=== PATIENT | female | born 1955 | race Caucasian/White ===

== ENCOUNTER 2016-09-04 06:13 | Inpatient (IN) | payer BC ==
--- NOTE | 2016-08-29 18:43 | HP ---
HISTORY AND PHYSICAL: DATE OF ADMISSION/SURGERY: 09/04/16 SURGEON: Carmelina Bishop MD. PROCEDURE: Right total hip arthroplasty. DATE OF OFFICE VISIT: 08/29/16 CHIEF COMPLAINT: Right hip pain. HISTORY OF PRESENT ILLNESS: Ms. Caceres is a 61-year-old female with complaints of right hip pain. She has advanced osteoarthritis and has failed conservative management and has elected to proceed with right total hip arthroplasty. Surgery is scheduled for 09/04/[address] Bishop. PAST MEDICAL HISTORY: 1. Diabetes. 2. Anemia. 3. Obesity. 4. Depression. 5. Malabsorption syndrome. 6. Psoriasis. 7. Sleep apnea. PAST SURGICAL HISTORY: Partial colectomy and appendectomy. CURRENT MEDICATIONS: 1. Zoloft. 2. Lorazepam. 3. Atorvastatin. 4. Januvia. 5. Montelukast. 6. Maggi. 7. Magnesium oxide. 8. Advair. 9. Fluticasone. 10. Iron. 11. Vitamin D. 12. Vitamin B12. 13. Aspirin. 14. Fentanyl patch. 15. Advil. 16. Hydrocodone/acetaminophen. ALLERGIES: CECLOR and SEPTRA. FAMILY HISTORY: Denies. SOCIAL HISTORY: She is a 61-year-old female. She works as a medical biller. She does not smoke or use drugs. She uses rare alcohol. REVIEW OF SYSTEMS: I reviewed a complete 14-point review of systems with the patient. She has a known history of anemia. Denies any anesthesia problems or history of a DVT. PHYSICAL EXAMINATION GENERAL: She is well developed, well nourished, in no acute distress. VITAL SIGNS: She stands 5 feet 6 inches tall, 240 pounds, her blood pressure is 134/80, heart rate 72. HEENT: Normocephalic, atraumatic. NECK: Supple. No palpable lymph nodes. Trachea is midline. PULMONARY: The lungs are clear to auscultation bilaterally. No wheezes, rhonchi, or rales. CARDIO: Regular rate and rhythm. Strong S1, S2. No murmurs, gallops, or rubs. No peripheral edema. ABDOMEN: Soft, nontender, nondistended. NEUROLOGICAL: She is alert and oriented x3. Cranial nerves II through XII are intact. MUSCULOSKELETAL: Right lower extremity: The skin is intact. She has limited range of motion with internal and external rotation in the right hip. She has 2 + distal pulses, intact sensation. Her lower extremity muscle group strengths are intact at 5/5 and she walks with an antalgic-type gait. ASSESSMENT AND PLAN: Ms. Caceres is a 61-year-old female with complaints of right hip pain secondary to advanced osteoarthritis. She has failed conservative management and has elected to proceed with a right total hip arthroplasty. The surgery is scheduled for 09/04/[address] Bishop. Percocet, Coumadin, and Colace were all sent to her pharmacy at today's visit for postoperative pain control and DVT prophylaxis. She was instructed not to take the Coumadin prior to the surgery. She was also asked to stop aspirin 1 week prior to the surgery. She will follow up with Dr. Bishop 2 weeks after the surgery. SHILO LARSON [id number]/[facility] #: [id number] AARON
[~2016-09-04 06:13] MED LIST: Buffered Lidocaine 1% SYR 3ML* 3 ML/SYR SYRINGE INTRADERM ONE; Buffered Lidocaine 1% SYR 3ML* 3 ML/SYR SYRINGE ONE; Famotidine IV* 10 MG/ML 2 ML (20 mg) IV ONE; Famotidine IV* 10 MG/ML 2 ML (20 mg) ONE; Gabapentin CAP(*) 300 MG ONE; Gabapentin CAP(*) 300 MG PO ONE; Levalbuterol 0.63MG/3ML NEB INH ONE; Levalbuterol 1.25MG/0.5ML NEB ONE; Metoclopramide TAB* 10 MG ONE; Metoclopramide TAB* 10 MG PO ONE; ceFAZolin 2 GM PREMIX (*) 2 GM/50 ML BAG IVPB ONE
[2016-09-04] MEDS ORDERED: Ondansetron INJ* 2 MG/ML VIAL ONE (07:10)
[2016-09-04] MEDS ORDERED: KETAMINE HCL* 50 MG/ML 10 ML VIAL ONE (07:10)
[2016-09-04] MEDS ORDERED: Bupivacaine 0.5% SDV PF* 30 ML VIAL ONE ×2 (07:10→09:12)
[2016-09-04] MEDS ORDERED: Propofol* 10 MG/ML 20 ML BTL IV PUSH ONE (07:10)
[2016-09-04] MEDS ORDERED: fentaNYL* 50 MCG/ML 2 ML VIAL (100 MCG VIAL) ONE ×5 (07:10→11:43)
[2016-09-04] MEDS ORDERED: Morphine PF AMP (0.5MG/ML)* 5 MG/10 ML AMP ONE (07:10)
[2016-09-04] MEDS ORDERED: Midazolam* 1 MG/ML 5 ML VIAL (5 MG) ONE (07:10)
[2016-09-04] MEDS ORDERED: Lidocaine 2% MPF* 2 ML VIAL ONE (07:10)
[2016-09-04] MEDS ORDERED: Dexamethasone IV* 4 MG/ML 1 ML (4 MG) ONE (07:10)
[2016-09-04] MEDS ORDERED: Ketorolac INJ* 30 MG/ML 1 ML VIAL ONE (07:10)
[2016-09-04] MEDS ORDERED: Cisatracurium* 2 MG/ML MDV 10 ML ONE (07:37)
[2016-09-04] MEDS ORDERED: fentaNYL* 50 MCG/ML 2 ML VIAL (100 MCG VIAL) IV PRN (09:03)
[2016-09-04] MEDS ORDERED: Ondansetron INJ* 2 MG/ML VIAL IV PRN ×2 (09:03→10:48)
[2016-09-04] MEDS ORDERED: HYDROmorphone INJ* 1 MG/ML CARPUJECT SYRINGE IV PRN (09:03)
[2016-09-04] MEDS ORDERED: DiMENhydriNATE IV* 50 MG/ML VIAL IV PUSH PRN (09:03)
[2016-09-04] MEDS ORDERED: Levalbuterol 0.63MG/3ML NEB INH PRN (09:03)
[2016-09-04] MEDS ORDERED: HYDROmorphone INJ* 1 MG/ML CARPUJECT SYRINGE ONE (09:46)
--- NOTE | 2016-09-04 10:29 | RAD ---
INDICATION: Right total hip placement surgery. TECHNIQUE: An AP view of the pelvis was obtained in the operating room. FINDINGS: There are postsurgical changes around the right hip. There is an acetabular prostheses and placement which appears to be in normal position. There is a femoral template in position. IMPRESSION: TOTAL RIGHT HIP REPLACEMENT SURGERY, INTRAOPERATIVE CONTROL FILMS.
[2016-09-04] MEDS ORDERED: Acetaminophen TAB* 325 MG PO PRN (10:48)
[2016-09-04] MEDS ORDERED: Bisacodyl SUPP* 10 MG SUPP PR PRN (10:48)
[2016-09-04] MEDS ORDERED: oxyCODONE/Acetamin 5/325 MG* TAB PO PRN (10:48)
[2016-09-04] MEDS ORDERED: diPHENhydraMINE IV* 50 MG/ML 1 ml VIAL (BENADRYL) IV PRN (10:48)
[2016-09-04] MEDS ORDERED: Meclizine TAB* 12.5 MG PO PRN (11:00)
[2016-09-04] MEDS ORDERED: PTO:Albuterol HFA INHALER* 8 gm MDI INH PRN (11:00)
--- NOTE | 2016-09-04 12:01 | RAD ---
HISTORY: Status post right total hip arthroplasty COMPARISONS: August 29, 2016 VIEWS: 3, Frontal view of the pelvis with frontal and crosstable lateral views the right hip FINDINGS: BONE DENSITY: Normal. BONES: The patient is status post right hip arthroplasty. There is no hardware failure or osteolysis. JOINTS: The patient is status post right hip arthroplasty. There is moderate osteoarthritis of the left hip ALIGNMENT: There is no dislocation. SOFT TISSUES: Unremarkable. OTHER FINDINGS: None. IMPRESSION: STATUS POST RIGHT HIP ARTHROPLASTY
[2016-09-04] MEDS ORDERED: Artificial Tear OPHTH.OINT* 3.5 GM RIGHT EYE PRN (12:57)
[2016-09-04] MEDS ORDERED: Morphine INJ* 4 MG/ML 1 ML CARPUJECT ONE (14:19)
[2016-09-04] MEDS: Morphine INJ* 4 MG/ML 1 ML CARPUJECT IV PRN ×3 (14:24→23:37)
[2016-09-04] MEDS: fentaNYL PATCH 25 MCG/HR TRANSDERM SCH (15:50)
[2016-09-04] MEDS: ceFAZolin 1 GM in Dextrose (*) 1 GM/50 ML BAG IVPB SCH ×2 (15:53→21:53)
[2016-09-04] MEDS: Tobramycin 0.3% OPHTH.SOL* 5 ML BOT (regular eye drops) RIGHT EYE SCH ×2 (16:43→21:57)
[2016-09-04] MEDS ORDERED: Warfarin TAB(*) 6 MG PO ONE (17:00)
--- NOTE | 2016-09-04 17:17 | PN ---
Progress Note - Progress Note SOAP: Subjective: Pt. is reporting eye pain, hip pain controlled. Objective: Vital Signs: Temp Pulse Resp BP Pulse Ox 98.4 F 68 16 141/67 95 09/04/16 15:54 09/04/16 15:54 09/04/16 16:46 09/04/16 15:54 09/04/16 16:00 Laboratory Results - last 24 hr 09/04/16 09/04/16 09/04/16 06:55 10:53 16:52 POC Glucose (mg/dL) 151 H 191 H 179 H RLE - distally nvi Assessment: 61 yo F s/p RTHA with possible corneal abrasion Plan: Pt. has likely corneal abrasion - eye drops and optho called. wbat RLE pt/ot in am
[2016-09-04] MEDS: oxyCODONE/Acetamin 5/325 MG* TAB PO PRN ×2 (17:25→21:55)
[2016-09-04] MEDS ORDERED: Dextrose 50% Syringe 50 ML* 25 GM/50 ML SYRINGE IV PUSH PRN (18:08)
[2016-09-04] MEDS: fentaNYL Patch Check Q Shift 1 NOTE SCH (18:47)
--- NOTE | 2016-09-04 21:51 | CONS ---
MEDICAL CONSULTATION: DATE OF CONSULT / DICTATION: 09/04/16 PRIMARY CARE PROVIDER: Dr. Baltazar. CONSULTING PROVIDER: SHILO Doyle REQUESTING PROVIDER: Dr. Carmelina Bishop. SUPERVISING PHYSICIAN: Dr. Hola Rey. CHIEF COMPLAINT: Status post left total hip arthroplasty. HISTORY OF PRESENT ILLNESS: This is a 61-year-old female with a history of noninsulin-dependent diabetes, asthma, chronic anemia, anxiety, malabsorption disorder after a partial colectomy, psoriasis, obstructive sleep apnea, Meniere' s disease, and a chronic leukocytosis, previously evaluated by Hematology, who underwent a right total hip arthroplasty by Dr. Carmelina Bishop earlier today. Hospitalist group has been consulted for medical co-management. The patient is reporting some right eye irritation postoperatively. Tobramycin drops and Artificial Tears have been ordered by Orthopedic Surgery and a consultation with Ophthalmology, suspect corneal abrasion. The patient's chronic medical conditions have been under good control. No recent acute illness or other acute concerns preoperatively. The patient reports that she is experiencing some mild hip pain, but otherwise denies any significant nausea, vomiting. PAST MEDICAL HISTORY: 1. Noninsulin-dependent diabetes with last hemoglobin A1c of 6.6%, measured in May of 2016. 2. Chronic anemia with preop hemoglobin of 11.4 g/dL measured 08/23/16. 3. Obstructive sleep apnea. 4. Anxiety. 5. Malabsorption syndrome secondary to partial colectomy. 6. Psoriasis. 7. Chronic leukocytosis thought to be secondary to her psoriasis, previously evaluated by Hematology. 8. Meniere's disease. 9. Asthma. 10. Chronic low back pain. PAST SURGICAL HISTORY: 1. Partial colectomy and appendectomy in 1989. 2. Right total hip arthroplasty today. HOME MEDICATIONS: 1. Metformin extended release 500 mg p.o. daily. 2. Albuterol inhaler 2 puffs inhaled q.4 hours p.r.n. shortness of breath. 3. Aspirin 81 mg p.o. daily. 4. Atorvastatin 10 mg p.o. daily. 5. Vitamin D 5000 units p.o. daily. 6. Clobetasol 0.05% cream apply topically daily as needed. 7. Ferrous sulfate 160 mg p.o. daily. 8. Maggi 1 tablet p.o. daily. 9. Fluticasone nasal spray 1 spray in each nostril daily. 10. Advair 500/50 one puff inhaled twice daily. 11. Vicodin 5/325 half a tablet p.o. q.3 hours as needed for pain. 12. Ibuprofen 800 mg p.o. 4 times a day as needed for pain. 13. Lorazepam 0.5 mg p.o. daily as needed for anxiety. 14. Magnesium oxide 1200 mg p.o. daily. 15. Meclizine 25 mg p.o. t.i.d. p.r.n. dizziness. 16. Singulair 10 mg p.o. daily. 17. Sertraline 150 mg p.o. daily. 18. Januvia 100 mg p.o. daily. 19. Fentanyl patch 25 mcg per hour apply transdermally and changed every 72 hours. SOCIAL HISTORY: The patient works as a medical laboratory technicians. She reports occasional alcohol use and denies a history of tobacco use. REVIEW OF SYSTEMS: The patient's only complaint is some mild right hip pain and right eye discomfort and otherwise negative. PHYSICAL EXAM: Vitals: Temperature 98.9 degrees Fahrenheit, heart rate 70 beats per minute, respiratory rate 16 per minute, blood pressure 137/65 mmHg. Oxygen saturation 98% on room air. General: This is a pleasant 61-year-old female who appears comfortable, lying in bed, and is in no acute distress. HEENT: Head is normocephalic, atraumatic. Right eye has a clear watery discharge with associated light sensitivity. Pupils are equal, round, and reactive to light and accommodation. Right cornea is mildly erythematous and no purulent drainage appreciated. Neck: Neck is supple and free of lymphadenopathy. No JVD appreciated. Respiratory: Normal work of breathing. Lungs are clear to auscultation without wheezes, crackles, or rhonchi. Cardiac : Heart has regular rate and rhythm without murmurs, rubs, or gallops. Abdomen : Abdomen is soft and nontender to palpation. Extremities: SCDs are in place. No obvious edema or erythema appreciated. Surgical dressing in place over the right hip. Neuro: The patient is awake and alert and able to answer all questions appropriately. DIAGNOSTIC STUDIES/LAB DATA: Laboratory evaluation reviewed. Preop labs from 08/23/16, which showed white blood cell count of 14,000 which again is chronic for this patient. Hemoglobin of 11.4 g/dL and a platelet count of 310,000. Comprehensive metabolic panel is unremarkable with a sodium of 134 mmol/L, potassium 4.1 mmol/L, BUN 16, creatinine 0.8 and estimated GFR of 73. Random glucose of 124 mg/dL, and transaminases and total bilirubin within normal limits. ASSESSMENT AND PLAN: This is a 61-year-old female with a history of noninsulin - dependent diabetes, asthma, chronic anemia, anxiety, malabsorption disorder secondary to partial colectomy, psoriasis, obstructive sleep apnea, Meniere's disease and chronic leukocytosis who is day 0 status post right total hip arthroplasty by Dr. Bishop. Hospitalist group has been asked to consult for medical co-management in this case. 1. Right total hip arthroplasty - the patient is day 0. Surgical management per orthopedic group. DVT prophylaxis, pain management, and discharge planning per Orthopedic Surgery. 2. Noninsulin-dependent diabetes - we will hold her metformin and Januvia, cover with sliding scale insulin at meal time during her hospital stay. 3. Asthma - no evidence of acute exacerbation. Continue home inhaled medication. 4. Chronic anemia - baseline hemoglobin of 11.4 g/dL. Hemoglobin and hematocrit will be checked tomorrow. 5. Chronic leukocytosis - this has been investigated by Hematology and thought to be benign. We will not monitor white blood cell count during her hospital stay and it will be anticipated high unless there is a clinical indication for it. 6. Anxiety - continue home medication. 7. Psoriasis. 8. Obstructive sleep apnea. 9. Meniere's disease. 10. Malabsorption disorder. 11. Code status - the patient is full code. 12. DVT prophylaxis - per Orthopedic Surgery. The patient has been ordered enoxaparin and Coumadin. 13. Healthcare proxy is unknown. DISPOSITION: Hospitalist group will continue to follow along on this patient. Discharge planning per orthopedic surgery group. SHILO DOYLE CC: Dr. Baltazar* [id number]/[facility] #: [id number] AARON
[2016-09-04] MEDS: Docusate CAP* 100 MG PO SCH (21:55)
--- NOTE | 2016-09-05 00:46 | OP ---
DATE OF OPERATION: 09/04/16 - ROOM #346 DATE OF : 59 SURGEON: Carmelina Bishop MD CHANGE RELEASE MANAGER: HSILO Colin ANESTHESIOLOGIST: Dr. Smith. ANESTHESIA: General. PRE-OP DIAGNOSIS: Severe end-stage degenerative osteoarthritis of the right hip joint. POST-OP DIAGNOSIS: Severe end-stage degenerative osteoarthritis of the right hip joint. OPERATIVE PROCEDURE: Right total hip arthroplasty. HARDWARE USED: Elmer uncemented total hip hardware. For the acetabular cup, a Trident Tritanium Cluster Hole Shell size 50 with a 32D, X3 liner. A 120 mm cancellous bone screw was used for extra fixation of the cup. For the femoral stem, an Accolade TMZF size 3 with a 132-degree neck. For the head, a ceramic Biolox delta 32, -4 femoral head. COMPLICATIONS: None. ESTIMATED BLOOD LOSS: 300 cc. SPECIMENS: Femoral head and acetabular bone reaming sent to pathology. BRIEF HISTORY/INDICATIONS: Ms. Caceres is a 61-year-old female with years of increasingly severe right hip pain. She fails conservative treatment with antiinflammatories, pain medication, ambulatory assistive devices, physical therapy, intraarticular injection, and attempted weight loss. Radiographs confirmed [id number] arthritis. Due to the patient's extreme pain and decreased quality of life, she wished to proceed with right total hip arthroplasty. Informed consent was obtained from the patient. She understood the risks of procedure included, but were not limited to bleeding, infection, damage to nearby structures, continued pain, need for further surgery, intraoperative fracture, nerve palsy, hardware failure or loosening, dislocation , leg length discrepancy, stroke, heart attack, blood clot, and . She wished to proceed. INTRAOPERATIVE FINDINGS: Intraoperatively, the patient was noted to have a dysplastic acetabulum with complete loss of cartilage. Femoral head and neck also had complete loss of cartilage and osteophyte formation. DESCRIPTION OF PROCEDURE: Ms. Caceres was identified in the preanesthesia unit. Her right lower extremity was marked as the correct operative site. Informed consent was signed and placed in the chart. The patient was taken to the operating room and placed under general anesthesia. A Cotter catheter was placed. She was placed in the left lateral decubitus position on the pegboard. All bony prominences were well padded. Right lower extremity was prepped and dapped in the usual sterile fashion. Preop time-out was made to correctly identify the patient's side and site. Appropriate perioperative antibiotics were given within 1 hour of incision. A 15-cm posterior hip incision was made with a 10 blade and carried down to the lateral fascial layer using electro-cautery. There was at least 10 cm of subcutaneous fat due to the patient's morbid obesity, which did add significant difficulty in exposure during the procedure. A Charnley retractor was placed once the lateral fascial layer was incised in line with the skin incision. Posterior aspect of the hip joint was visualized. The piriformis and conjoined tendons were elevated off the posterolateral femur using electrocautery. These were tagged with two #5 Ethibond's. Next, electro-cautery was used to make a standard posterolateral capsular flap and this was also tagged with two #5 Ethibond's. The hip was carefully dislocated. Lesser trochanter to the center of the femoral head measured 50 mm. Oscillating saw was used to make the appropriate femoral neck cut and the femoral head was sent to pathology. The femur was carefully retracted anteriorly. After appropriate placement of retractors, the acetabulum was visualized. There was complete loss of cartilage here and a shallow dysplastic acetabular cup. Electrocautery was used to remove any soft tissue from the cotyloid notch. A long handle knife was used to sharply remove any remaining labrum from the acetabular rim. The acetabulum was sequentially reamed up to a size 49. The 49 trial had good stability in anteversion and abduction angle. A 50 Trident Tritanium Cluster Hole Shell was chosen. This was impacted into the acetabulum without difficulty. There was a nice bleeding bone bed. The cup was very stable with appropriate anteversion and abduction angle. A 120 mm screw was placed in the superior posterior quadrant. A 32D Trident X3 polyethylene liner was chosen. This was impacted into the acetabulum without difficulty. Stability of the liner and the cup was checked and rechecked and noted to be stable. Next, attention was turned to preparation of the proximal femur. Canal finder was used to enter the proximal femur. The proximal femur was sequentially broached up to a size 3. Size 3 broach had satisfactory anteversion and excellent stability. A 132 neck trial was chosen with a 32, +0 femoral head. Lesser troch to the center of the femoral head measured 55 mm, therefore a 32, - 4 trial was chosen. Lesser troch to the center of the femoral head measured 52 mm. The hip was carefully reduced. The hip was taken through range of motion and was stable in all positions. Leg lengths were deemed to be approximate and soft tissue tension was satisfactory. The patient's muscles and the soft tissue were noted to have significant laxity. The hip was stable in all positions, however. The hip was carefully dislocated. All trials were removed. Final implant was an Accolade TMZF size 3 with a 132-degree neck. This was impacted into the femoral canal without difficulty. There was excellent stability. A 32, -4 ceramic head was chosen and impacted on to the femoral head. The hip was reduced and taken thorough range of motion. The hip was stable in all positions. The hip was copiously irrigated with sterile saline. The previously tagged capsule and tendons were reapproximated through the posterior lateral femur through 2 trochanteric drill holes. Lateral fascial layer was closed using interrupted #1 Vicryl. The rest of the incision was closed in a layered fashion using 0 and 2-0 Vicryl's. Skin was closed using running 3-0 Monocryl suture with Dermabond. Sterile Adaptic, 4x4, and a paper tape were used to cover the incision. A 0.5% Marcaine was used for local anesthesia. The patient's anesthesia was reversed without difficulty. She was taken to the PACU in stable condition. Intended weightbearing will be weightbearing as tolerated with posterior hip precautions. Intended DVT prophylaxis will be Coumadin with a Lovenox bridge. [id number]/[facility] #: [id number] AARNO
[2016-09-05] MEDS: Tobramycin 0.3% OPHTH.SOL* 5 ML BOT (regular eye drops) RIGHT EYE SCH ×6 (00:47→20:13)
[2016-09-05] MEDS: ceFAZolin 1 GM in Dextrose (*) 1 GM/50 ML BAG IVPB SCH (03:24)
[2016-09-05] MEDS: oxyCODONE/Acetamin 5/325 MG* TAB PO PRN ×5 (03:26→19:01)
[2016-09-05] MEDS: Morphine INJ* 4 MG/ML 1 ML CARPUJECT IV PRN ×3 (04:35→11:24)
[2016-09-05] MEDS: fentaNYL Patch Check Q Shift 1 NOTE SCH ×2 (06:47→19:02)
[2016-09-05 06:49] LABS: Hematocrit 26 % (35-47); Hemoglobin 8.1 g/dl (12.0-16.0)
[2016-09-05 07:03] LABS: BUN/Creatinine Ratio 21.9 (8-20); Calcium 8.2 mg/dL (8.6-10.3); EGFR African American 122.1 (>60); Potassium 3.6 mmol/L (3.5-5.0)
--- NOTE | 2016-09-05 07:16 | PN ---
Progress Note - Progress Note SOAP: Subjective: Pt. reports her eye feels much better. 6/10 R hip pain. Objective: RLE - dressing c/d/i, thigh soft, distally nvi with + df/pf, full sens lt, 2+ dp pulse Vital Signs: Temp Pulse Resp BP Pulse Ox 99.5 F 86 16 118/55 96 09/05/16 03:24 09/05/16 03:24 09/05/16 05:26 09/05/16 03:24 09/05/16 04:00 Laboratory Results - last 24 hr 09/04/16 09/04/16 09/04/16 06:55 10:53 16:52 Hgb Hct INR (Anticoag Therapy) Sodium Potassium Chloride Carbon Dioxide Anion Gap BUN Creatinine Est GFR ( Amer) Est GFR (Non-Af Amer) BUN/Creatinine Ratio Glucose POC Glucose (mg/dL) 151 H 191 H 179 H Calcium 09/05/16 09/05/16 09/05/16 06:30 06:30 06:30 Hgb 8.1 L Hct 26 L INR (Anticoag Therapy) 1.17 H Sodium 135 Potassium 3.6 Chloride 104 Carbon Dioxide 28 Anion Gap 3 BUN 14 Creatinine 0.64 Est GFR ( Amer) 122.1 Est GFR (Non-Af Amer) 95.0 BUN/Creatinine Ratio 21.9 H Glucose 138 H POC Glucose (mg/dL) Calcium 8.2 L Assessment: 61 yo F pod 1 s/p RTHA Plan: wbat rle - pt/ot post hip precautions postop likely corneal abrasion much improved today 8 mg coumadin tonight, lovenox bridge
[2016-09-05] MEDS ORDERED: Mometasone/Formoter 200/5 MDI INH SCH (08:00)
[2016-09-05] MEDS: FLUTICASONE SALMETEROL INH SCH ×2 (09:06→20:13)
[2016-09-05] MEDS: Insulin LISPRO* 1 UNITS UNIT SUBCUT SCH ×3 (09:10→19:00)
[2016-09-05] MEDS: Vitamin THERAPEUTIC TAB PO SCH (09:11)
[2016-09-05] MEDS: Atorvastatin* 10 MG TAB PO SCH (09:12)
[2016-09-05] MEDS: Montelukast Sodium TAB* 10 MG PO SCH (09:12)
[2016-09-05] MEDS: Docusate CAP* 100 MG PO SCH ×2 (09:12→20:13)
[2016-09-05] MEDS: Sertraline* 100 MG TAB PO SCH (09:12)
[2016-09-05] MEDS: Enoxaparin(*) 40 MG/0.4 ML SYR SUBCUT SCH (10:22)
[2016-09-05] MEDS ORDERED: Cyclobenzaprine TAB* 10 MG PO PRN (11:48)
[2016-09-05] MEDS ORDERED: LORazepam TAB(*) 0.5 MG PO ONE (11:48)
--- NOTE | 2016-09-05 12:08 | PN ---
Subjective Date of Service: 09/05/16 Interval History: Patient seen and examined at bedside. Pt denies fever, chest discomfort, N/V/D. Pt states that she feels chilled (Pt's room is cool) and slightly short of breath after getting from the chair to the bed. Pt is complaining of pain in her right hip. Family History: Unchanged from Admission Social History: Unchanged from Admission Past Medical History: Unchanged from Admission Objective Active Medications: Acetaminophen (Tylenol Tab*) 650 mg PO Q4H PRN Reason: PAIN OR TEMPERATURE Albuterol (Ventolin Hfa Inhaler*) 2 puff INH Q4H PRN Reason: SOB/WHEEZING Artificial Tears (Lacrilube Oint*) 1 applic RIGHT EYE Q4H PRN Reason: DISCOMFORT Atorvastatin Calcium (Lipitor*) 10 mg PO DAILY JOHN Bisacodyl (Dulcolax Supp*) 10 mg [place] DAILY PRN Reason: constipation Dextrose (D50w Syringe 50 Ml*) 12.5 gm IV PUSH .FOR FS < 60 - SS PRN Reason: FS < 60 Diphenhydramine HCl (Benadryl Iv*) 25 mg IV Q6H PRN Reason: itching Docusate Sodium (Colace Cap*) 100 mg PO BID JOHN Enoxaparin Sodium (Lovenox(*)) 40 mg SUBCUT Q24H JOHN Fentanyl (Duragesic Patch 25 Mcg/Hr*) 25 mcg TRANSDERM Q72H JOHN Lactated Ringer's (Lactated Ringers 1000 Ml Bag*) 1,000 mls @ 100 mls/hr IV PER RATE JOHN Insulin Human Lispro (Humalog*) 0 units SUBCUT AC JOHN Reason: Protocol Lactulose (Lactulose*) 30 ml PO Q6H PRN Reason: constipation Magnesium Hydroxide (Milk Of Magnesia Liq*) 30 ml PO Q6H PRN Reason: constipation Meclizine HCl (Antivert Tab*) 25 mg PO TID PRN Reason: VERTIGO Montelukast Sodium (Singulair Tab*) 10 mg PO DAILY JOHN Morphine Sulfate (Morphine Inj (Syringe)*) 4 mg IV Q2H PRN Reason: PAIN - UNRELIEVED Multivitamins (Theragran Tab*) 1 tab PO DAILY JOHN Ondansetron HCl (Zofran Inj*) 4 mg IV Q6H PRN Reason: nausea Oxycodone HCl (Roxycodone Tab*) 10 mg PO Q4H PRN Reason: PAIN - UNCONTROLLED Oxycodone/Acetaminophen (Percocet 5/325 Tab*) 1 tab PO Q3H PRN Reason: PAIN - MODERATE Oxycodone/Acetaminophen (Percocet 5/325 Tab*) 2 tab PO Q3H PRN Reason: PAIN - SEVERE Pharmacy Profile Note (Fentanyl Patch Check Q Shift) 1 note N/A 0700,1900 JOHN Fluticasone/Salmeterol (Advair Diskus 500-50*) 1 puff INH RT.BID JOHN Sertraline HCl (Zoloft*) 150 mg PO DAILY JOHN Tobramycin Sulfate (Tobramycin 0.3% Ophth.Claudia*) 1 drop RIGHT EYE Q4H JOHN Warfarin Sodium (Coumadin Tab(*)) 8 mg PO ONCE@1700 ONE Stop: 09/05/16 17:01 Vital Signs 09/04/16 09/04/16 09/04/16 11:44 11:45 12:00 Temperature Pulse Rate 85 81 Respiratory 16 16 16 Rate Blood Pressure 148/69 155/77 (mmHg) O2 Sat by Pulse 96 98 Oximetry 09/04/16 09/04/16 09/04/16 12:15 12:30 12:45 Temperature Pulse Rate 86 82 74 Respiratory 16 16 16 Rate Blood Pressure 138/73 142/83 153/77 (mmHg) O2 Sat by Pulse 98 98 96 Oximetry 09/04/16 09/04/16 09/04/16 13:00 13:15 13:33 Temperature 98.6 F Pulse Rate 85 74 73 Respiratory 16 16 18 Rate Blood Pressure 141/72 149/78 145/72 (mmHg) O2 Sat by Pulse 98 97 96 Oximetry 09/04/16 09/04/16 09/04/16 14:00 14:24 14:46 Temperature 98.8 F Pulse Rate 72 Respiratory 11 16 18 Rate Blood Pressure 147/73 (mmHg) O2 Sat by Pulse 96 96 Oximetry 09/04/16 09/04/16 09/04/16 15:24 15:43 15:50 Temperature 98.6 F Pulse Rate 73 Respiratory 18 18 16 Rate Blood Pressure 145/72 (mmHg) O2 Sat by Pulse 96 Oximetry 09/04/16 09/04/16 09/04/16 15:54 16:00 17:25 Temperature 98.4 F Pulse Rate 68 Respiratory 20 12 18 Rate Blood Pressure 141/67 (mmHg) O2 Sat by Pulse 98 95 Oximetry 09/04/16 09/04/16 09/04/16 17:34 18:00 18:49 Temperature 98.9 F Pulse Rate 70 Respiratory 16 16 Rate Blood Pressure 137/65 (mmHg) O2 Sat by Pulse 98 98 95 Oximetry 09/04/16 09/04/16 09/04/16 18:55 18:58 19:25 Temperature 99.4 F Pulse Rate 78 Respiratory 20 16 18 Rate Blood Pressure 139/67 (mmHg) O2 Sat by Pulse 98 Oximetry 09/04/16 09/04/16 09/04/16 19:27 19:55 20:00 Temperature Pulse Rate Respiratory 16 16 16 Rate Blood Pressure (mmHg) O2 Sat by Pulse 95 Oximetry 09/04/16 09/04/16 09/04/16 21:55 22:00 23:32 Temperature 100.7 F Pulse Rate 85 Respiratory 18 14 18 Rate Blood Pressure 110/45 (mmHg) O2 Sat by Pulse 95 98 Oximetry 09/04/16 09/04/16 09/04/16 23:35 23:37 23:55 Temperature Pulse Rate Respiratory 18 20 Rate Blood Pressure (mmHg) O2 Sat by Pulse 98 Oximetry 09/05/16 09/05/16 09/05/16 00:00 00:37 02:00 Temperature Pulse Rate Respiratory 16 14 18 Rate Blood Pressure (mmHg) O2 Sat by Pulse 96 96 Oximetry 09/05/16 09/05/16 09/05/16 02:57 03:24 03:26 Temperature 99.5 F Pulse Rate 86 Respiratory 18 18 Rate Blood Pressure 118/55 (mmHg) O2 Sat by Pulse 96 98 Oximetry 09/05/16 09/05/16 09/05/16 04:00 04:35 05:26 Temperature Pulse Rate Respiratory 18 18 16 Rate Blood Pressure (mmHg) O2 Sat by Pulse 96 Oximetry 09/05/16 09/05/16 09/05/16 07:18 07:30 07:37 Temperature 99.2 F Pulse Rate 83 Respiratory 16 16 16 Rate Blood Pressure 101/53 (mmHg) O2 Sat by Pulse 92 92 Oximetry 09/05/16 09/05/16 09/05/16 09:07 09:18 10:00 Temperature Pulse Rate Respiratory 18 16 Rate Blood Pressure (mmHg) O2 Sat by Pulse 97 Oximetry 09/05/16 09/05/16 09/05/16 10:07 10:21 11:03 Temperature Pulse Rate Respiratory 16 16 Rate Blood Pressure (mmHg) O2 Sat by Pulse 96 Oximetry 09/05/16 11:24 Temperature 99.2 F Pulse Rate 86 Respiratory 24 Rate Blood Pressure 145/64 (mmHg) O2 Sat by Pulse 100 Oximetry Eyes: No Scleral Icterus, PERRLA Ears/Nose/Mouth/Throat: NL Teeth, Lips, Gums, Mucous Membranes Moist Neck: NL Appearance and Movements; NL JVP, Trachea Midline Respiratory: Symmetrical Chest Expansion and Respiratory Effort, Clear to Auscultation Cardiovascular: NL Sounds; No Murmurs; No JVD, RRR Abdominal: NL Sounds; No Tenderness; No Distention Extremities: No Edema Skin: - - Dressing to right hip clean, dry and intact Neurological: Alert and Oriented x 3, NL Muscle Strength and Tone Lines/Tubes/Other Access: Clean, Dry and Intact Peripheral IV - site benign Nutrition: Taking PO's Result Diagrams: 09/05/16 06:30 09/05/16 06:30 Assess/Plan/Problems-Billing Assessment: Ms. 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 Bishop. - Patient Problems (1) Status post total hip replacement, right Code(s): Z96.641 - PRESENCE OF RIGHT ARTIFICIAL HIP JOINT SNOMED Code(s): 994972197019 Comment: POD #1. Management per Ortho. Trend HH. Continue PT/OT. (2) Diabetes Code(s): E11.9 - TYPE 2 DIABETES MELLITUS WITHOUT COMPLICATIONS SNOMED Code(s) : 74286590 Comment: - Glucose 150-190's - Continue Lispro SS - Hold metformin and Januvia (3) Asthma Code(s): J45.909 - UNSPECIFIED ASTHMA, UNCOMPLICATED SNOMED Code(s): 384057495 Comment: - Continue Singulair, Advair and Albuterol PRN (4) Anxiety Code(s): F41.9 - ANXIETY DISORDER, UNSPECIFIED SNOMED Code(s): 25424650 Comment: - Continue home lorazepam (5) Chronic anemia Code(s): D64.9 - ANEMIA, UNSPECIFIED SNOMED Code(s): 388613820 Comment: - Continue to trend HH (6) CHEN (obstructive sleep apnea) Code(s): G47.33 - OBSTRUCTIVE SLEEP APNEA (ADULT) (PEDIATRIC) SNOMED Code(s): 72884817 Comment: - Continue home CPAP (7) DVT prophylaxis Code(s): YJF5155 - SNOMED Code(s): 005545039 Comment: Continue Lovenox and Warfarin Per Ortho (8) Full code status Code(s): Z78.9 - OTHER SPECIFIED HEALTH STATUS SNOMED Code(s): 429823198 Status and Disposition: Inpatient. Disposition per Orthopedics.
[2016-09-05] MEDS: oxyCODONE TAB* 5 MG TAB PO PRN ×3 (12:32→21:57)
[2016-09-05] MEDS ORDERED: Warfarin TAB(*) 4 MG PO ONE (17:00)
[2016-09-06] MEDS: oxyCODONE/Acetamin 5/325 MG* TAB PO PRN ×5 (00:12→20:23)
[2016-09-06] MEDS: Tobramycin 0.3% OPHTH.SOL* 5 ML BOT (regular eye drops) RIGHT EYE SCH ×7 (00:12→23:31)
[2016-09-06] MEDS: oxyCODONE TAB* 5 MG TAB PO PRN ×5 (02:13→23:31)
[2016-09-06] MEDS: FLUTICASONE SALMETEROL INH SCH ×2 (06:15→20:23)
[2016-09-06] MEDS: fentaNYL Patch Check Q Shift 1 NOTE SCH ×2 (06:58→19:25)
[2016-09-06 07:19] LABS: Hematocrit 24 % (35-47); Hemoglobin 7.7 g/dl (12.0-16.0)
[2016-09-06 07:24] LABS: Comments Flag Yes
[2016-09-06] MEDS: Insulin LISPRO* 1 UNITS UNIT SUBCUT SCH ×3 (07:34→18:22)
[2016-09-06] MEDS: Montelukast Sodium TAB* 10 MG PO SCH (08:10)
[2016-09-06] MEDS: Atorvastatin* 10 MG TAB PO SCH (08:10)
[2016-09-06] MEDS: Docusate CAP* 100 MG PO SCH ×2 (08:11→20:23)
[2016-09-06] MEDS: LORazepam TAB(*) 0.5 MG PO PRN (08:11)
[2016-09-06] MEDS: Vitamin THERAPEUTIC TAB PO SCH (08:11)
[2016-09-06] MEDS: Sertraline* 100 MG TAB PO SCH (08:11)
--- NOTE | 2016-09-06 09:51 | PN ---
Progress Note - Progress Note SOAP: Subjective: [Patient evaluated at bedside. She states that her pain level has improved this morning. Denies current chest pain, shortness or breath or dizziness.] Objective: [] Vital Signs Temp 99.5 F 09/06/16 07:25 Pulse 84 09/06/16 07:25 Resp 18 09/06/16 08:14 BP 119/48 09/06/16 07:25 Pulse Ox 96 09/06/16 08:00 Intake & Output 09/05/16 09/06/16 09/06/16 18:59 06:59 18:59 Intake Total 1419 1442 200 Output Total 1250 850 300 Balance 169 592 -100 Intake: IV Fluids 1019 622 ABX - CEFAZOLIN 53 LR 966 622 Oral 400 820 200 Output: Urine 850 300 [place] 1250 Other: # Voids 1 Laboratory Results - last 24 hr 09/05/16 09/05/16 09/06/16 11:44 16:34 06:00 Hgb 7.7 L Hct 24 L INR (Anticoag Therapy) POC Glucose (mg/dL) 139 H 158 H 09/06/16 09/06/16 06:00 07:26 Hgb Hct INR (Anticoag Therapy) 2.11 H POC Glucose (mg/dL) 143 H right hip dressing moderate serosanguinous drainage Calf soft and non tender active DF/PF Right LE 2+ pedal pulse Assessment: [S/P right total hip arthroplasty POD #2 Acute post op anemia secondary to blood loss with history of chronic anemia ] Plan: []Continue current pain management regimen Continue PT/OT as tolerated WBAT right LE Transfuse 2 units PRBC Check H/H in am Discharge when stable medically
[2016-09-06] MEDS: Magnesium Hydroxide LIQ* 30 ML UDC PO PRN ×2 (10:34→20:23)
[2016-09-06] MEDS: Enoxaparin(*) 40 MG/0.4 ML SYR SUBCUT SCH (11:31)
--- NOTE | 2016-09-06 16:24 | PN ---
Subjective Date of Service: 09/06/16 Interval History: Patient seen and examined at bedside. Pt states that her pain is more controlled today. Denies fever, chills, shortness of breath, chest discomfort, N /V/D. Pt states that she has not moved her bowels post-op. Family History: Unchanged from Admission Social History: Unchanged from Admission Past Medical History: Unchanged from Admission Objective Active Medications: Acetaminophen (Tylenol Tab*) 650 mg PO Q4H PRN Reason: PAIN OR TEMPERATURE Albuterol (Ventolin Hfa Inhaler*) 2 puff INH Q4H PRN Reason: SOB/WHEEZING Artificial Tears (Lacrilube Oint*) 1 applic RIGHT EYE Q4H PRN Reason: DISCOMFORT Atorvastatin Calcium (Lipitor*) 10 mg PO DAILY JOHN Bisacodyl (Dulcolax Supp*) 10 mg [place] DAILY PRN Reason: constipation Cyclobenzaprine HCl (Flexeril Tab*) 10 mg PO BID PRN Reason: SPASMS Dextrose (D50w Syringe 50 Ml*) 12.5 gm IV PUSH .FOR FS < 60 - SS PRN Reason: FS < 60 Diphenhydramine HCl (Benadryl Iv*) 25 mg IV Q6H PRN Reason: itching Docusate Sodium (Colace Cap*) 100 mg PO BID JOHN Enoxaparin Sodium (Lovenox(*)) 40 mg SUBCUT Q24H JOHN Fentanyl (Duragesic Patch 25 Mcg/Hr*) 25 mcg TRANSDERM Q72H JOHN Lactated Ringer's (Lactated Ringers 1000 Ml Bag*) 1,000 mls @ 100 mls/hr IV PER RATE JOHN Insulin Human Lispro (Humalog*) 0 units SUBCUT AC OJHN Reason: Protocol Lactulose (Lactulose*) 30 ml PO Q6H PRN Reason: constipation Lorazepam (Ativan Tab(*)) 0.5 mg PO DAILY PRN Reason: ANXIETY Magnesium Hydroxide (Milk Of Magnesia Liq*) 30 ml PO Q6H PRN Reason: constipation Meclizine HCl (Antivert Tab*) 25 mg PO TID PRN Reason: VERTIGO Montelukast Sodium (Singulair Tab*) 10 mg PO DAILY JOHN Morphine Sulfate (Morphine Inj (Syringe)*) 4 mg IV Q2H PRN Reason: PAIN - UNRELIEVED Multivitamins (Theragran Tab*) 1 tab PO DAILY JOHN Ondansetron HCl (Zofran Inj*) 4 mg IV Q6H PRN Reason: nausea Oxycodone HCl (Roxycodone Tab*) 10 mg PO Q4H PRN Reason: PAIN - UNCONTROLLED Oxycodone/Acetaminophen (Percocet 5/325 Tab*) 1 tab PO Q3H PRN Reason: PAIN - MODERATE Oxycodone/Acetaminophen (Percocet 5/325 Tab*) 2 tab PO Q3H PRN Reason: PAIN - SEVERE Pharmacy Profile Note (Fentanyl Patch Check Q Shift) 1 note N/A 0700,1900 JOHN Fluticasone/Salmeterol (Advair Diskus 500-50*) 1 puff INH RT.BID JOHN Sertraline HCl (Zoloft*) 150 mg PO DAILY JOHN Tobramycin Sulfate (Tobramycin 0.3% Ophth.Claudia*) 1 drop RIGHT EYE Q4H JOHN Warfarin Sodium (Coumadin Tab(*)) 8 mg PO ONCE@1700 ONE Stop: 09/06/16 17:01 Vital Signs 09/05/16 09/05/16 09/05/16 19:01 19:37 20:19 Temperature 99.5 F Pulse Rate 92 Respiratory 18 16 16 Rate Blood Pressure 105/54 (mmHg) O2 Sat by Pulse 97 Oximetry 09/06/16 09/06/16 09/06/16 00:00 00:12 01:46 Temperature 98.6 F Pulse Rate 89 Respiratory 18 18 Rate Blood Pressure 142/52 (mmHg) O2 Sat by Pulse 94 94 Oximetry 09/06/16 09/06/16 09/06/16 03:16 04:11 04:13 Temperature 100.7 F Pulse Rate 86 Respiratory 16 18 16 Rate Blood Pressure 134/56 (mmHg) O2 Sat by Pulse 91 Oximetry 09/06/16 09/06/16 09/06/16 07:25 08:00 08:11 Temperature 99.5 F Pulse Rate 84 Respiratory 16 18 18 Rate Blood Pressure 119/48 (mmHg) O2 Sat by Pulse 96 96 Oximetry 09/06/16 09/06/16 09/06/16 08:14 10:11 11:23 Temperature 98.5 F Pulse Rate 88 Respiratory 18 20 16 Rate Blood Pressure 120/52 (mmHg) O2 Sat by Pulse 90 Oximetry 09/06/16 09/06/16 09/06/16 11:46 12:00 13:46 Temperature Pulse Rate Respiratory 20 18 Rate Blood Pressure (mmHg) O2 Sat by Pulse 95 Oximetry 09/06/16 09/06/16 14:07 15:15 Temperature 99.3 F Pulse Rate 89 Respiratory 18 22 Rate Blood Pressure 123/49 (mmHg) O2 Sat by Pulse 92 Oximetry Oxygen Devices in Use Now: Nasal Cannula - 2L Appearance: NAD, sitting up in a chair Eyes: No Scleral Icterus, PERRLA Ears/Nose/Mouth/Throat: NL Teeth, Lips, Gums, Mucous Membranes Moist Neck: NL Appearance and Movements; NL JVP, Trachea Midline Respiratory: Symmetrical Chest Expansion and Respiratory Effort, Clear to Auscultation Cardiovascular: NL Sounds; No Murmurs; No JVD, RRR Abdominal: NL Sounds; No Tenderness; No Distention Extremities: No Edema Skin: No Rash or Ulcers, - - Dressing to left hip clean, dry and intact Neurological: Alert and Oriented x 3, NL Muscle Strength and Tone Lines/Tubes/Other Access: Clean, Dry and Intact Peripheral IV - site benign Nutrition: Taking PO's Result Diagrams: 09/06/16 06:00 09/05/16 06:30 Assess/Plan/Problems-Billing Assessment: Ms. 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 Bishop. - Patient Problems (1) Status post total hip replacement, right Code(s): Z96.641 - PRESENCE OF RIGHT ARTIFICIAL HIP JOINT SNOMED Code(s): 295258235118 Comment: - POD #2. - Management per Ortho. - HH 7.7/24, will get 2 units RBCs today. Continue to trend HH. - Continue PT/OT. (2) Diabetes Code(s): E11.9 - TYPE 2 DIABETES MELLITUS WITHOUT COMPLICATIONS SNOMED Code(s) : 28626053 Comment: - Glucose 130-150's - Continue Lispro SS - Hold metformin and Januvia (3) Asthma Code(s): J45.909 - UNSPECIFIED ASTHMA, UNCOMPLICATED SNOMED Code(s): 432964530 Comment: - Continue Singulair, Advair and Albuterol PRN (4) Anxiety Code(s): F41.9 - ANXIETY DISORDER, UNSPECIFIED SNOMED Code(s): 24107033 Comment: - Continue home lorazepam (5) Chronic anemia Code(s): D64.9 - ANEMIA, UNSPECIFIED SNOMED Code(s): 671988797 Comment: - Continue to trend HH - Receiving 2 units RBCs today for acute blood loss anemia (6) CHEN (obstructive sleep apnea) Code(s): G47.33 - OBSTRUCTIVE SLEEP APNEA (ADULT) (PEDIATRIC) SNOMED Code(s): 89008050 Comment: - Continue home CPAP (7) DVT prophylaxis Code(s): IVZ9479 - SNOMED Code(s): 675053400 Comment: Continue Lovenox and Warfarin Per Ortho (8) Full code status Code(s): Z78.9 - OTHER SPECIFIED HEALTH STATUS SNOMED Code(s): 141509797 Status and Disposition: Inpatient. Disposition per Orthopedics.
[2016-09-06] MEDS ORDERED: Warfarin TAB(*) 4 MG PO ONE (17:00)
[2016-09-07] MEDS: oxyCODONE/Acetamin 5/325 MG* TAB PO PRN ×4 (02:34→16:00)
[2016-09-07] MEDS: oxyCODONE TAB* 5 MG TAB PO PRN ×2 (05:26→13:54)
[2016-09-07] MEDS: Tobramycin 0.3% OPHTH.SOL* 5 ML BOT (regular eye drops) RIGHT EYE SCH ×3 (05:26→12:26)
[2016-09-07] MEDS: fentaNYL Patch Check Q Shift 1 NOTE SCH (07:17)
[2016-09-07 07:41] LABS: Hematocrit 30 % (35-47); Hemoglobin 9.8 g/dl (12.0-16.0); Mean Platelet Volume 7 um3 (7.4-10.4)
[2016-09-07 08:01] VITALS: BP 135/67
[2016-09-07] MEDS: Insulin LISPRO* 1 UNITS UNIT SUBCUT SCH ×2 (08:16→12:27)
[2016-09-07] MEDS: Sertraline* 100 MG TAB PO SCH (08:29)
[2016-09-07] MEDS: Montelukast Sodium TAB* 10 MG PO SCH (08:29)
[2016-09-07] MEDS: Vitamin THERAPEUTIC TAB PO SCH (08:29)
[2016-09-07] MEDS: Atorvastatin* 10 MG TAB PO SCH (08:29)
[2016-09-07] MEDS: Docusate CAP* 100 MG PO SCH (08:29)
[2016-09-07] MEDS: LORazepam TAB(*) 0.5 MG PO PRN (08:33)
[2016-09-07] MEDS: FLUTICASONE SALMETEROL INH SCH (08:52)
--- NOTE | 2016-09-07 10:42 | PN ---
Progress Note - Progress Note SOAP: Subjective: POD #3 Right GERARDO. States that she is still having pain but medication is helping somewhat. Denies CP/SOB or calf pain. Objective: Vital Signs: Temp Pulse Resp BP Pulse Ox 98.1 F 70 16 135/67 97 09/07/16 07:26 09/07/16 07:26 09/07/16 08:33 09/07/16 07:26 09/07/16 07:26 Gen: A & Ox3, NAD at rest sitting in chair Right hip: Dressing C/D/I. Thigh soft, moderately tender. +f/e and knee, ankle and calf, N/V intact Lab: Laboratory Results - last 24 hr 09/06/16 09/06/16 09/06/16 06:00 11:47 17:25 Hgb Hct Plt Count MPV INR (Anticoag Therapy) POC Glucose (mg/dL) 130 H 168 H Blood Type O Negative Antibody Screen Negative Crossmatch See Detail 09/07/16 09/07/16 09/07/16 07:12 07:12 08:08 Hgb 9.8 L Hct 30 L Plt Count 237 MPV 7 L INR (Anticoag Therapy) 3.39 H POC Glucose (mg/dL) 122 H Blood Type Antibody Screen Crossmatch Assessment: POD #3 Right GERARDO Plan: D/C home today INR 3.39, hold coumadin until re-draw Mon F/u with Dr. Bishop 10-14 days
--- NOTE | 2016-09-07 11:02 | PN ---
Subjective Date of Service: 09/07/16 Interval History: Patient seen and examined at bedside. Pt states that she is feeling well. Denies fever, chills, shortness of breath, chest discomfort, eye irritation, N/V /D. Discussed with Pt not wearing contacts until her eye was no longer bothering her, and once she does try them to remove the contacts if her eye feels irritated. Family History: Unchanged from Admission Social History: Unchanged from Admission Past Medical History: Unchanged from Admission Objective Active Medications: Acetaminophen (Tylenol Tab*) 650 mg PO Q4H PRN Reason: PAIN OR TEMPERATURE Albuterol (Ventolin Hfa Inhaler*) 2 puff INH Q4H PRN Reason: SOB/WHEEZING Artificial Tears (Lacrilube Oint*) 1 applic RIGHT EYE Q4H PRN Reason: DISCOMFORT Atorvastatin Calcium (Lipitor*) 10 mg PO DAILY JOHN Bisacodyl (Dulcolax Supp*) 10 mg [place] DAILY PRN Reason: constipation Cyclobenzaprine HCl (Flexeril Tab*) 10 mg PO BID PRN Reason: SPASMS Dextrose (D50w Syringe 50 Ml*) 12.5 gm IV PUSH .FOR FS < 60 - SS PRN Reason: FS < 60 Diphenhydramine HCl (Benadryl Iv*) 25 mg IV Q6H PRN Reason: itching Docusate Sodium (Colace Cap*) 100 mg PO BID JOHN Fentanyl (Duragesic Patch 25 Mcg/Hr*) 25 mcg TRANSDERM Q72H JOHN Lactated Ringer's (Lactated Ringers 1000 Ml Bag*) 1,000 mls @ 100 mls/hr IV PER RATE JOHN Insulin Human Lispro (Humalog*) 0 units SUBCUT AC JOHN Lactulose (Lactulose*) 30 ml PO Q6H PRN Reason: constipation Lorazepam (Ativan Tab(*)) 0.5 mg PO DAILY PRN Reason: ANXIETY Magnesium Hydroxide (Milk Of Magnesia Liq*) 30 ml PO Q6H PRN Reason: constipation Meclizine HCl (Antivert Tab*) 25 mg PO TID PRN Reason: VERTIGO Montelukast Sodium (Singulair Tab*) 10 mg PO DAILY OJHN Morphine Sulfate (Morphine Inj (Syringe)*) 4 mg IV Q2H PRN Reason: PAIN - UNRELIEVED Multivitamins (Theragran Tab*) 1 tab PO DAILY [facility] Ondansetron HCl (Zofran Inj*) 4 mg IV Q6H PRN Reason: nausea Oxycodone HCl (Roxycodone Tab*) 10 mg PO Q4H PRN Reason: PAIN - UNCONTROLLED Oxycodone/Acetaminophen (Percocet 5/325 Tab*) 1 tab PO Q3H PRN Reason: PAIN - MODERATE Oxycodone/Acetaminophen (Percocet 5/325 Tab*) 2 tab PO Q3H PRN Reason: PAIN - SEVERE Pharmacy Profile Note (Fentanyl Patch Check Q Shift) 1 note N/A 0700,1900 [facility] Fluticasone/Salmeterol (Advair Diskus 500-50*) 1 puff INH RT.BID [facility] Sertraline HCl (Zoloft*) 150 mg PO DAILY [facility] Tobramycin Sulfate (Tobramycin 0.3% Ophth.Claudia*) 1 drop RIGHT EYE Q4H [facility] Vital Signs 09/06/16 09/06/16 09/06/16 11:23 11:46 12:00 Temperature 98.5 F Pulse Rate 88 Respiratory 16 20 Rate Blood Pressure 120/52 (mmHg) O2 Sat by Pulse 90 95 Oximetry 09/06/16 09/06/16 09/06/16 13:46 14:07 15:15 Temperature 99.3 F Pulse Rate 89 Respiratory 18 18 22 Rate Blood Pressure 123/49 (mmHg) O2 Sat by Pulse 92 Oximetry 09/06/16 09/06/16 09/06/16 16:00 16:07 17:17 Temperature Pulse Rate Respiratory 18 18 Rate Blood Pressure (mmHg) O2 Sat by Pulse 92 Oximetry 09/06/16 09/06/16 09/06/16 19:15 19:17 20:23 Temperature 100.4 F Pulse Rate 84 Respiratory 16 18 18 Rate Blood Pressure 126/52 (mmHg) O2 Sat by Pulse 92 Oximetry 09/06/16 09/06/16 09/06/16 20:30 20:35 22:23 Temperature 100.3 F Pulse Rate 89 Respiratory 18 16 16 Rate Blood Pressure 124/57 (mmHg) O2 Sat by Pulse 91 Oximetry 09/06/16 09/06/16 09/07/16 23:31 23:32 01:31 Temperature 100.1 F Pulse Rate 84 Respiratory 16 18 16 Rate Blood Pressure 138/61 (mmHg) O2 Sat by Pulse 93 Oximetry 09/07/16 09/07/16 09/07/16 02:34 03:26 04:34 Temperature 98.5 F Pulse Rate 74 Respiratory 16 16 18 Rate Blood Pressure 125/55 (mmHg) O2 Sat by Pulse 95 Oximetry 09/07/16 09/07/16 09/07/16 05:26 07:26 08:29 Temperature 98.1 F Pulse Rate 70 Respiratory 16 16 16 Rate Blood Pressure 135/67 (mmHg) O2 Sat by Pulse 97 Oximetry Oxygen Devices in Use Now: None Appearance: NAD, sitting up in a chair Eyes: No Scleral Icterus, PERRLA Ears/Nose/Mouth/Throat: NL Teeth, Lips, Gums, Mucous Membranes Moist Neck: NL Appearance and Movements; NL JVP, Trachea Midline Respiratory: Symmetrical Chest Expansion and Respiratory Effort, Clear to Auscultation Cardiovascular: NL Sounds; No Murmurs; No JVD, RRR Abdominal: NL Sounds; No Tenderness; No Distention - Bowel sounds present Extremities: No Edema Skin: - - Dressing to left hip Neurological: Alert and Oriented x 3, NL Muscle Strength and Tone Lines/Tubes/Other Access: Clean, Dry and Intact Peripheral IV - site benign Nutrition: Taking PO's Result Diagrams: 09/07/16 07:12 09/05/16 06:30 Assess/Plan/Problems-Billing Assessment: Ms. 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 Bishop. - Patient Problems (1) Status post total hip replacement, right Code(s): Z96.641 - PRESENCE OF RIGHT ARTIFICIAL HIP JOINT SNOMED Code(s): 802181551019 Comment: - POD #3. - Management per Ortho. - HH 9.04/10, received 2 units RBCs yesterday. - Continue PT/OT. (2) Diabetes Code(s): E11.9 - TYPE 2 DIABETES MELLITUS WITHOUT COMPLICATIONS SNOMED Code(s) : 59535887 Comment: - Glucose 120-160's - Resume metformin and Januvia (3) Asthma Code(s): J45.909 - UNSPECIFIED ASTHMA, UNCOMPLICATED SNOMED Code(s): 644410630 Comment: - Continue Singulair, Advair and Albuterol PRN (4) Anxiety Code(s): F41.9 - ANXIETY DISORDER, UNSPECIFIED SNOMED Code(s): 72226667 Comment: - Continue home lorazepam (5) Chronic anemia Code(s): D64.9 - ANEMIA, UNSPECIFIED SNOMED Code(s): 568166464 Comment: - HH improved after 2 units RBCs yesterday - Acute blood loss anemia (6) CHEN (obstructive sleep apnea) Code(s): G47.33 - OBSTRUCTIVE SLEEP APNEA (ADULT) (PEDIATRIC) SNOMED Code(s): 79934310 Comment: - Continue home CPAP (7) DVT prophylaxis Code(s): AGS4831 - SNOMED Code(s): 240035484 Comment: Continue Warfarin Per Ortho (8) Full code status Code(s): Z78.9 - OTHER SPECIFIED HEALTH STATUS SNOMED Code(s): 591459050 Status and Disposition: Inpatient. Disposition per Orthopedics.
[2016-09-07] MEDS: fentaNYL PATCH 25 MCG/HR TRANSDERM SCH (13:50)
--- NOTE | 2016-09-08 09:31 | DS ---
DISCHARGE SUMMARY: DATE OF ADMISSION: 09/04/16 DATE OF DISCHARGE: 09/07/16 ADMITTING DIAGNOSIS: Severe end-stage osteoarthritis of the right hip. DISCHARGE DIAGNOSIS: Severe end-stage osteoarthritis of the right hip, status post right total hip arthroplasty. SECONDARY DIAGNOSES: 1. Diabetes. 2. Anemia. 3. Obesity. 4. Depression. 5. Malabsorption syndrome. 6. Psoriasis. 7. Anxiety. HISTORY OF PRESENT ILLNESS: Ms. Caceres is a 61-year-old female who has had ongoing complaints of right hip pain with advanced osteoarthritis. She failed conservative management and elected to proc eed with right total hip arthroplasty. HOSPITAL COURSE: On 09/04/16, the patient was admitted to [facility] and underwent a suc cessful right total hip arthroplasty by Dr. Bishop. She recovered briefly in the postanesthesia care unit and was transferred to the short- stay surgical unit in stable condition. The patient was als o consulted on by the hospitalist service for co-management of her medical conditions. On postop da y 1, the patient complained of significant pain despite oral and IV pain medication as well as her h ome dose of Duragesic patch. The patient also seemed to have quite a bit of anxiety on postop day 1 . She was able to get up to a chair with the assistance of physical therapy. Her Cotter catheter wa s removed on postop day 1. Her H and H was 8.1 and 26. Her INR was 1.17 with 8 mg of Coumadin. Pos top day #2, the patient continued to require IV and oral pain medication as well as extended release narcotics to manage her pain. Her H and H was 7.7 and 24. INR was 2.11. The patient did complain of some lightheadedness on postop day #2. Given the low H and H and the dizziness, the patient was transfused two units of packed red blood cells. She did report that this did help her to feel desmond r. On postop day #3, the patient was requiring only oral pain medication. She was able to ambulate with physical therapy. Her H and H was stable at 9.8 and 30. INR was 3.39. She was stable for [facility] at this point. DISCHARGE MEDICATIONS: The patient will go home with: 1. Percocet 5/325 one to two tabs p.o. q.4 to 6 hours p.r.n. pain. 2. Oxycodone 5 mg p.o. q.3 hours p.r.n. breakthrough pain. 3. Colace 100 mg p.o. b.i.d. 4. Coumadin. The patient is understanding to hold her Coumadin on 09/07/16, 09/08/16, and 09/09/16 given the supratherapeutic INR. She will have a redraw of her INR on 09/10/16. She will resume her home medications of: 1. Ventolin HFA inhaler two puffs inhaled q.4 hours p.r.n. 2. Artificial tears q.4 hours p.r.n. 3. Lipitor 10 mg p.o. every day. 4. Metformin 500 mg p.o. every day. 5. Fentanyl patch 25 mcg/hr q.72 hours. 6. Januvia 100 mg p.o. every day. 7. Zoloft 150 mg p.o. every day. 8. Singulair 10 mg p.o. every day. 9. Meclizine 25 mg p.o. t.i.d. p.r.n. 10. Magnesium oxide supplement three tabs p.o. every day. 11. Ativan one tab p.o. every day p.r.n. 12. Advair one puff inhaled b.i.d. 13. Flonase nasal spray two inhalations nasally every day. 14. Maggi 100 mg one p.o. every day. 15. Ferrous sulfate two tabs p.o. every day. 16. Clobetasol cream apply topically p.r.n. 17. Vitamin D 5000 units p.o. every day. 18. Aspirin 81 mg p.o. every day. 19. Tobramycin ophthalmic drops in the right eye q.4 hours. 20. Flexeril 10 mg p.o. b.i.d. p.r.n. DISCHARGE INSTRUCTIONS: The patient is understanding to keep her incision clean and dry until posto p day 4. At that time, she may shower and wash the wound normally with soap and water. She may jaime ly dry dressing as needed. She is understanding not to submerge the incision in the bathtub, hot tu b, or swimming pool. She is weightbearing as tolerated with the use of a rolling walker. She will have visiting nurse service for INR draws on Saturday's and ', home physical therapy as well. The patient is understanding to call their office with any problems or concerns. She is understan ding to go directly to the emergency room with any chest pain, shortness of breath, fever greater th an 101.5, calf pain or swelling. She will follow up in the office 10 to[address] Bishop. All of her questions were answered to her full satisfaction. SHILO NOLASCO [id number]/[facility] #: [id number]
== END 2016-09-07 16:15 | disposition home health service (06) | DRG 301 ==
LOC: AA 06:13 → SSU 10:48
PROVIDERS: ADMIT Orthopaedic Surgery Adult Reconstructive Orthopaedic Surgery; ATTEND Orthopaedic Surgery Adult Reconstructive Orthopaedic Surgery
PROC: 0SR904A Replacement of Right Hip Joint with Ceramic on Polyethylene Synthetic Substitute, Uncemented, Open Approach (ICD-10-PCS; 2016-09-04)
PROC: 30233N1 Transfusion of Nonautologous Red Blood Cells into Peripheral Vein, Percutaneous Approach (ICD-10-PCS; principal; 2016-09-06)
DX: M16.11 Unilateral primary osteoarthritis, right hip (principal); K90.9 Intestinal malabsorption, unspecified; D62 Acute posthemorrhagic anemia; E11.9 Type 2 diabetes mellitus without complications; F32.9 Major depressive disorder, single episode, unspecified; D53.9 Nutritional anemia, unspecified; E66.9 Obesity, unspecified; L40.9 Psoriasis, unspecified; F41.9 Anxiety disorder, unspecified; R79.1 Abnormal coagulation profile; T45.515A Adverse effect of anticoagulants, initial encounter; Z79.82 Long term (current) use of aspirin; Z79.84 Long term (current) use of oral hypoglycemic drugs; J45.909 Unspecified asthma, uncomplicated; G47.33 Obstructive sleep apnea (adult) (pediatric); F43.10 Post-traumatic stress disorder, unspecified; D72.828 Other elevated white blood cell count; G89.29 Other chronic pain; M54.5 Low back pain; H81.09 Meniere's disease, unspecified ear; Z68.39 Body mass index [BMI] 39.0-39.9, adult
CPT/HCPCS: 36415; 72170; 80048; 85014; 85018; 85049; 85610; 86850; 86900; 86901; 86922; 88304; 88311; 94660; 94760; A9270-GY; C1713; C1776; J0690; J1100; J1170; J1650; J1885; J2250; J2270; J2405; J2704; J3010; P9040

== ENCOUNTER 2016-10-20 09:30 | Emergency (ER) | payer BC ==
--- NOTE | 2016-10-20 10:08 | UC ---
Respiratory Complaint HPI - HPI Summary HPI Summary: CHEST CONGESTION, COUGH X 6 DAYS + SINUS PAIN AND PRESSURE, NASAL CONGESTION, PND NO FEVER, + CHILLS - History of Current Complaint Chief Complaint: UCGeneralIllness Stated Complaint: SINUS COMPLAINT Time Seen by Provider: 10/20/16 09:56 Hx Obtained From: Patient Onset/Duration: Gradual Onset, Lasting Days - 6, Still Present Timing: Constant Severity Initially: Moderate Severity Currently: Moderate Character: Cough: Nonproductive Aggravating Factors: Exertion, Deep Breaths Alleviating Factors: Nothing Associated Signs And Symptoms: Positive: Chills, Wheezing, URI, Nasal Congestion. Negative: Dyspnea, Fever, Dizziness, Calf Pain, Calf Swelling - Allergies/Home Medications Allergies/Adverse Reactions: Allergies Allergy/AdvReac Type Severity Reaction Status Date / Time Cefaclor [From [facility]] Allergy Rash Verified 10/20/16 09:42 Formaldehyde Allergy Rash Verified 10/20/16 09:42 Sulfamethoxazole Allergy Rash Verified 10/20/16 09:42 w/Trimethoprim [From [facility]] Home Medications: Home Medications oxyCODONE TAB* [Roxycodone TAB 5 mg*] 5 mg PO Q8H PRN 10/20/16 [History Confirmed 10/20/16] oxyCODONE/Acetamin 5/325 MG* [Percocet 5/325 TAB*] 1 tab PO Q8H PRN 10/20/16 [ History Confirmed 10/20/16] PMH/Surg Hx/FS Hx/Imm Hx Endocrine History Of: Reports: Diabetes Respiratory History Of: Reports: Asthma Denies: Bronchitis Psychological History Of: Reports: Anxiety - ON MEDICATION FOR, Depression - ON MEDICATION FOR Cancer History Of: Denies: Breast Cancer - Surgical History Surgical History: Yes Surgery Procedure, Year, and Place: 1989 APPY, right total hip replacement 2017 - Family History Known Family History: Negative: Diabetes - Social History Alcohol Use: None Substance Use Type: Prescribed Smoking Status (MU): Former Smoker Amount Used/How Often: 1/2 PPD X 4-5 YEARS Length of Time of Smoking/Using Tobacco: quit 1991 Have You Smoked in the Last Year: No When Did the Patient Quit Smoking/Using Tobacco: 1991 - Immunization History Most Recent Influenza Vaccination: 2016 Most Recent Tetanus Shot: UP TO DATE Most Recent Pneumonia Vaccination: HAS HAD Review of Systems Constitutional: Negative Skin: Negative Eyes: Negative ENT: Sore Throat, Nasal Discharge Respiratory: Cough Cardiovascular: Negative All Other Systems Reviewed And Are Negative: Yes Physical Exam Triage Information Reviewed: Yes Appearance: Well-Appearing, No Pain Distress, Well-Nourished Vital Signs: Initial Vital Signs Temp 98.2 F 10/20/16 09:49 Pulse 83 10/20/16 09:49 Resp 18 10/20/16 09:49 BP 144/67 10/20/16 09:49 Pulse Ox 97 10/20/16 09:49 Vital Signs Reviewed: Yes Eye Exam: Normal ENT: Positive: Normal ENT inspection, Hearing grossly normal, Pharynx normal Neck: Positive: Supple, Nontender, No Lymphadenopathy Respiratory: Positive: Chest non-tender, Lungs clear, Crackles - LEFT LOWER LUNG Cardiovascular: Positive: RRR, No Murmur, Pulses Normal Abdominal Exam: Normal Skin Exam: Normal UC Diagnostic Evaluation - Laboratory O2 Sat by Pulse Oximetry: 97 Respiratory Course/Dx - Differential Dx/Diagnosis Provider Diagnoses: SINUSITIS Discharge - Discharge Plan Condition: Stable Disposition: HOME Prescriptions: Azithromycin TAB* [Zithromax TAB (Z-KIRA) 250 mg #6 tabs] 2 tab PO .TODAY, THEN 1 DAILY #1 kira predniSONE TAB* [Deltasone TAB*] 40 mg PO DAILY #10 tab Patient Education Materials: Sinusitis (ED) Referrals: Vidal Baltazar DO [Primary Care Provider] - 7 Days
--- NOTE | 2016-10-20 10:47 | RAD ---
INDICATION: Cough. COMPARISON: August 29, 2016 TECHNIQUE: Dual energy PA and routine lateral views of the chest were obtained. REPORT: Elevated lung volumes with increased AP thoracic diameter. Mild prominence of interstitial markings without change. No alveolar consolidation to raise concern for pneumonia. Negative for pleural effusion or pneumothorax. The heart, pulmonary vasculature, and mediastinal contours are unremarkable. IMPRESSION: Stigmata of potential chronic obstructive pulmonary disease. No evidence for pneumonia.
[2016-10-20 10:55] VITALS: BP 121/58
== END 2016-10-20 10:57 | disposition home or self-care (01) ==
LOC: UCCORT 09:30
DX: J32.9 Chronic sinusitis, unspecified (principal); R05 Cough; J45.909 Unspecified asthma, uncomplicated; Z88.1 Allergy status to other antibiotic agents; Z88.2 Allergy status to sulfonamides; E11.9 Type 2 diabetes mellitus without complications; F32.9 Major depressive disorder, single episode, unspecified; F41.9 Anxiety disorder, unspecified; Z87.891 Personal history of nicotine dependence
CPT/HCPCS: 71020; 99212; G0463

== ENCOUNTER 2017-06-04 05:56 | Inpatient (IN) | payer BC ==
--- NOTE | 2017-05-27 15:18 | HP ---
HISTORY AND PHYSICAL: DATE OF SURGERY: 06/04/17 DATE OF OFFICE VISIT: 05/27/17 SURGEON: Carmelina Bishop MD * (DICTATED BY SHILO LARSON) PROCEDURE: Left total hip arthroplasty. CHIEF COMPLAINT: Left hip pain. HISTORY OF PRESENT ILLNESS: Ms. Caceres is a 61-year-old female with continued complaints of left hip pain secondary to advanced osteoarthritis. She has failed conservative management and has elected to proceed with a left total hip arthroplasty, which is scheduled for 06/04/17. PAST MEDICAL HISTORY: Diabetes, anemia, malabsorption syndrome, depression, sleep apnea, and psoriasis. PAST SURGICAL HISTORY: Appendectomy, right total hip arthroplasty, and partial colectomy. CURRENT MEDICATIONS: 1. Lorazepam 0.5 mg every 8 hours as needed. 2. ProAir HFA as needed. 3. Montelukast sodium 10 mg at bedtime. 4. Fluticasone propionate 50 mcg per spray every morning. 5. Clobetasol as needed. 6. Furosemide 20 mg every morning as needed. 7. Maggi Allergy daily. 8. Slow-release iron 2 tabs daily. 9. Aspirin 81 mg daily. 10. Sertraline 100 mg 1.5 tablets daily. 11. Atorvastatin calcium 10 mg daily. 12. Vitamin D3. 13. Advair Diskus. 14. Januvia 100 mg every day. 15. Calcipotriene as needed. 16. Magnesium oxide daily. 17. Vitamin B12 daily. 18. Phenylephrine HCl 10 mg as needed. 19. Meclizine 25 mg as needed. 20. Voltaren gel as needed. 21. Percocet 5/325 every 4 to 6 hours as needed. ALLERGIES: CECLOR, SEPTRA, FORMALDEHYDE, and TAPE. FAMILY HISTORY: Breast cancer. SOCIAL HISTORY: She is a 61-year-old female. She works as a medical bill processor. She does not smoke, use drugs, or alcohol. REVIEW OF SYSTEMS: A complete 14-point review of systems was reviewed with the patient and is positive for asthma, sleep apnea, and diabetes. She denies history of DVT, PE, or anesthesia problems. PHYSICAL EXAMINATION GENERAL: She is well-developed and well-nourished in no acute distress. She is alert and oriented x3. Pleasant mood, appropriate affect. VITAL SIGNS: She stands 65 inches tall, weighs 246 pounds, her blood pressure is 130/79 and heart rate is 84. HEENT: Normocephalic and atraumatic. NECK: Supple. PULMONARY: Lungs are clear to auscultation bilaterally. CARDIO: Regular, rate, and rhythm. Strong S1 and S2. ABDOMEN: Soft, nontender, and nondistended. NEUROLOGIC: Cranial nerves II through XII are intact. MUSCULOSKELETAL: Left lower extremity: The skin is intact. She has no open wounds or abrasions. She has decreased internal and external rotation of the left hip which causes pain. Negative straight leg raise. 2+ dorsalis pedis pulses, intact sensation. Her lower extremity muscle group strengths are intact to 5/5. She walks with an antalgic type gait favoring the left hip. ASSESSMENT AND PLAN: Ms. Caceres is a 61-year-old female with complaints of left hip pain secondary to advanced osteoarthritis. She has failed conservative management, had elected to proceed with a left total hip arthroplasty which is scheduled for 06/04/[address] Bishop discussed the risks and benefits of the surgery at today's visit and all of her questions were answered. Coumadin and Colace were sent to her pharmacy for postoperative DVT prophylaxis. She currently has a prescription for Percocet. So no pain medication was given on today visit. She will follow with Dr. Bishop 2 weeks after the surgery. SHILO LARSON [id number]/[facility] #: [id number] AARON
[~2017-06-04 05:56] MED LIST changes: +Buffered Lidocaine 0.9% SYRIN* 5 ML/SYR SYRINGE INTRADERM ONE; -Buffered Lidocaine 1% SYR 3ML* 3 ML/SYR SYRINGE INTRADERM ONE; -Buffered Lidocaine 1% SYR 3ML* 3 ML/SYR SYRINGE ONE; -Famotidine IV* 10 MG/ML 2 ML (20 mg) IV ONE; -Famotidine IV* 10 MG/ML 2 ML (20 mg) ONE; -Gabapentin CAP(*) 300 MG ONE; -Gabapentin CAP(*) 300 MG PO ONE; -Levalbuterol 0.63MG/3ML NEB INH ONE; -Levalbuterol 1.25MG/0.5ML NEB ONE; -Metoclopramide TAB* 10 MG ONE; -Metoclopramide TAB* 10 MG PO ONE; -ceFAZolin 2 GM PREMIX (*) 2 GM/50 ML BAG IVPB ONE
[2017-06-04] MEDS ORDERED: Famotidine IV* 10 MG/ML 2 ML (20 mg) IV ONE (06:00)
[2017-06-04] MEDS ORDERED: Acetaminophen TAB* 325 MG PO ONE (06:00)
[2017-06-04] MEDS ORDERED: Famotidine IV* 10 MG/ML 2 ML (20 mg) ONE (06:10)
[2017-06-04] MEDS ORDERED: Buffered Lidocaine 0.9% SYRIN* 5 ML/SYR SYRINGE ONE (06:11)
[2017-06-04] MEDS ORDERED: Acetaminophen TAB* 325 MG ONE (06:11)
[2017-06-04] MEDS ORDERED: ceFAZolin 2 GM PREMIX (*) 2 GM/50 ML BAG IVPB ONE (06:11)
[2017-06-04] MEDS ORDERED: Midazolam* 1 MG/ML 5 ML VIAL (5 MG) ONE ×2 (06:48→08:13)
[2017-06-04] MEDS ORDERED: fentaNYL* 50 MCG/ML 2 ML VIAL (100 MCG VIAL) ONE ×4 (06:48→12:28)
[2017-06-04] MEDS ORDERED: Propofol* 500 MG/50 ML BTL ONE (06:48)
[2017-06-04] MEDS ORDERED: HYDROmorphone INJ* 1 MG/ML CARPUJECT SYRINGE ONE (06:48)
[2017-06-04] MEDS ORDERED: Lidocaine 2% PF * 5 ML VIAL ONE (06:49)
[2017-06-04] MEDS ORDERED: Bupivacaine 0.5% SDV PF* 30 ML VIAL ONE ×2 (06:54→11:01)
[2017-06-04] MEDS ORDERED: KETAMINE HCL* 50 MG/ML 10 ML VIAL ONE (07:54)
[2017-06-04] MEDS ORDERED: Levalbuterol 0.63MG/3ML NEB* UNIT OF USE INH PRN (08:39)
[2017-06-04] MEDS ORDERED: Scopolamine 1.5 mg* PATCH TRANSDERM PRN (08:39)
[2017-06-04] MEDS ORDERED: Ibuprofen TAB* 600 MG PO PRN (08:39)
[2017-06-04] MEDS ORDERED: oxyCODONE/Acetamin 5/325 MG* TAB PO PRN ×2 (08:39→10:24)
[2017-06-04] MEDS ORDERED: diPHENhydraMINE IV* 50 MG/ML 1 ml VIAL (BENADRYL) IV PRN ×2 (08:39→10:24)
[2017-06-04] MEDS ORDERED: Ondansetron INJ* 2 MG/ML VIAL IV PRN ×2 (08:39→10:24)
[2017-06-04] MEDS ORDERED: DiMENhydriNATE IV* 50 MG/ML VIAL IV PUSH PRN (08:39)
[2017-06-04] MEDS ORDERED: oxyCODONE TAB* 5 MG TAB PO PRN (08:39)
[2017-06-04] MEDS ORDERED: Nalbuphine* 20 MG/ML 1 ML VIAL IV PRN ×2 (08:39→16:26)
[2017-06-04] MEDS ORDERED: Phenylephrine IV* 40 MCG/ML 10 ML SYRINGE ONE (08:47)
[2017-06-04] MEDS ORDERED: Propofol* 10 MG/ML 20 ML BTL IV PUSH ONE (09:36)
[2017-06-04] MEDS ORDERED: Polyethylene Glycol 3350* 17 GM PACKET PO PRN (10:24)
[2017-06-04] MEDS ORDERED: Bisacodyl SUPP* 10 MG SUPP PR PRN (10:24)
[2017-06-04] MEDS ORDERED: Morphine INJ* 2 MG/ML 1 ML SYRINGE (TWO MG - NEW SYRINGE VERSION) IV PRN (10:24)
[2017-06-04] MEDS ORDERED: Ondansetron TAB* 4 MG PO PRN (10:24)
[2017-06-04] MEDS ORDERED: Acetaminophen TAB* 325 MG PO PRN (10:24)
[2017-06-04] MEDS ORDERED: Meclizine TAB* 12.5 MG PO PRN (10:29)
[2017-06-04] MEDS ORDERED: Cetirizine* 10 MG TAB PO PRN (10:29)
[2017-06-04] MEDS ORDERED: Albuterol HFA INHALER* 8 gm MDI INH PRN (10:29)
[2017-06-04] MEDS ORDERED: Esmolol* 10 MG/ML 10 ML (100 mg) ONE (10:30)
[2017-06-04] MEDS ORDERED: Albuterol inh POWDER (NF) 1 PUFF MDI INH SCH (11:00)
--- NOTE | 2017-06-04 11:10 | RAD ---
Indication: Left hip replacement. 2 views of left hip demonstrates sizing of the left femoral component of the left hip with femoral place. Left acetabular cup in place. IMPRESSION: Intraoperative control films for left hip replacement.
[2017-06-04] MEDS ORDERED: Midazolam* 1 MG/ML 2 ML VIAL (2 MG) ONE (11:37)
[2017-06-04] MEDS: fentaNYL* 50 MCG/ML 2 ML VIAL (100 MCG VIAL) IV PRN ×5 (12:07→12:29)
[2017-06-04] MEDS ORDERED: HYDROmorphone INJ* 2 MG/ML CARPUJECT SYRINGE ONE (12:31)
[2017-06-04] MEDS: HYDROmorphone INJ* 2 MG/ML CARPUJECT SYRINGE IV PRN ×2 (12:44→13:07)
--- NOTE | 2017-06-04 13:02 | RAD ---
HISTORY: Status post left hip arthroplasty COMPARISONS: March 07, 2017 VIEWS: 3, Frontal view of the pelvis with frontal and crosstable lateral views of the left hip FINDINGS: BONE DENSITY: Normal. BONES: The patient is status post bilateral hip arthroplasty. On the left, there is no hardware failure or osteolysis. JOINTS: The patient is status post bilateral hip arthroplasty ALIGNMENT: There is no dislocation. SOFT TISSUES: Unremarkable. OTHER FINDINGS: None. IMPRESSION: STATUS POST BILATERAL HIP ARTHROPLASTY
[2017-06-04] MEDS: ceFAZolin 1 GM VIAL(*) 1 GM in NS 0.9% 50 ML* 50 ML IVPB SCH ×3 (14:41→23:47)
[2017-06-04] MEDS: LORazepam TAB(*) 0.5 MG PO SCH ×2 (14:42→21:10)
[2017-06-04] MEDS: oxyCODONE/Acetamin 5/325 MG* TAB PO PRN ×2 (16:07→20:20)
[2017-06-04] MEDS ORDERED: PROCHLORPERAZINE INJ 5 MG/ML 2 ML VIAL IV PRN (16:26)
[2017-06-04] MEDS ORDERED: Naloxone* 0.4 MG/ML 1 ML VIAL IV PRN (16:26)
[2017-06-04] MEDS: Montelukast Sodium TAB* 10 MG PO SCH (16:46)
[2017-06-04] MEDS ORDERED: Warfarin TAB(*) 6 MG PO ONE (17:00)
[2017-06-04] MEDS: Mometasone/Formoter 200/5 MDI INH SCH (20:14)
[2017-06-04] MEDS: Docusate CAP* 100 MG PO SCH (20:20)
--- NOTE | 2017-06-04 23:50 | CONS ---
[facility] MEDICINE CONSULTATION REPORT: DATE OF CONSULTATION: 06/04/17 ATTENDING PHYSICIAN: Carmelina Bishop MD CONSULTING PHYSICIAN: Yovanny Mendez MD (dictation provided by Georgina Wheeler NP) REASON FOR CONSULTATION: Medical co-management in patient admitted to the hospital for left total hip arthroplasty. HISTORY OF PRESENT ILLNESS: Ms. Caceres is a 61-year-old female with a past medical history of non-insulin dependent diabetes, anemia secondary to malabsorption syndrome after an appendectomy requiring a partial colectomy due to infection and sleep apnea who presents today to the hospital with plan for an elective left total hip arthroplasty. Please see the dictated H and P from Dr. Bishop for complete details. In brief, the patient had complained of ongoing left hip pain and decided to advance to surgical intervention when medical conservative management failed. The patient has a history of right total hip replacement with Dr. Bishop as well that she states went smoothly. She did develop anemia postoperatively and states that she did require blood transfusion. She states that prior to coming into the hospital, she was in no complaints and was feeling well other than her hip pain. PAST MEDICAL HISTORY: 1. Type 2 diabetes, non-insulin dependent. 2. Anemia secondary to malabsorption syndrome from partial colectomy. 3. Depression. 4. Obstructive sleep apnea with home CPAP. 5. Psoriasis. 6. Meniere disease. PAST SURGICAL HISTORY: 1. Appendectomy. 2. Right total hip arthroplasty. 3. Partial colectomy. MEDICATIONS: 1. Lorazepam 0.5 mg p.o. as needed. 2. Tylenol p.r.n. 3. Oxycodone with acetaminophen 5/325 mg 1 tab p.o. b.i.d. p.r.n. 4. Sitagliptin 100 mg p.o. daily. 5. Sertraline 150 mg p.o. daily. 6. Montelukast 10 mg p.o. q.p.m. 7. Magnesium oxide 1 to 4 tabs p.o. daily. 8. Fluticasone/salmeterol 500/50 one puff inhale b.i.d. 9. Flonase nasal spray 2 inhalations nasal daily. 10. Ibuprofen 400 mg p.o. q.4 hours p.r.n. 11. Fexofenadine 1 tab p.o. daily p.r.n. 12. Ferrous sulfate 2 caps p.o. daily. 13. Clobetasol 1 application topically daily p.r.n. 14. Cholecalciferol. 15. Vitamin D 5000 mg p.o. daily. 16. Albuterol inhaler 2 puffs inhale q.4 hours p.r.n. 17. Phenylephrine decongestant 10 mg p.o. daily. 18. Vitamin B12 tabs 4 tabs p.o. daily. 19. Atorvastatin 10 mg p.o. daily. 20. Aspirin 81 mg p.o. daily. 21. Meclizine 25 mg p.o. t.i.d. p.r.n. 22. Voltaren gel p.r.n. 23. Calcipotriene/betamethasone 0.005/0.064 topically p.r.n. ALLERGIES: CEFACLOR, FORMALDEHYDE, SULFAMETHOXAZOLE with TRIMETHOPRIM. FAMILY HISTORY: Reviewed, noncontributory. SOCIAL HISTORY: No report of alcohol, tobacco, or drug use. She states that her daughter, Karla, would be the healthcare proxy. REVIEW OF SYSTEMS: A 14-point review of systems was completed with Ms. Caceres and all those not mentioned above were negative. PHYSICAL EXAMINATION: Vital Signs: Temperature 97.8, pulse rate 82, respiratory rate 16, O2 saturation 97% on 2 L nasal cannula, blood pressure 103/ 56. General: Ms. Caceres is sitting up in the bed. She is in no acute distress. Neuro: She is alert. She is oriented x3. She moves all extremities equally. There is no facial asymmetry or focal weakness. Extraocular movements are intact. Heart: S1, S2. No murmur, rub, or gallop and regular. Lungs: Clear to auscultation bilaterally with no accessory muscle use and good aeration. Abdomen is soft, nontender with bowel sounds positive x4. Extremities: No cyanosis or edema. Skin: Intact. DIAGNOSTIC STUDIES/LAB DATA: Preoperatively, WBC 9.7, hemoglobin 10.7, hematocrit 33, platelet count 270,000. Sodium 136, potassium of 4.2, chloride 105, serum bicarbonate 24, BUN 14, creatinine 0.72, glucose 147. ASSESSMENT/PLAN: Ms. Caceres is a 61-year-old female with past medical history of diabetes and anemia secondary to malabsorption syndrome after a partial colectomy as well as obstructive sleep apnea, on home CPAP, who presents today to the hospital for an elective left total hip arthroplasty. Our recommendations are as follows: 1. Left total hip arthroplasty. Management will be per orthopedic services. The patient will have pain medication p.r.n. with a bowel regimen. Start physical and occupational therapy. We will monitor H and H closely and transfuse as indicated. 2. Anemia. Again, we need to monitor H and H closely as she has baseline anemia and malabsorption with low B12 and iron. Plan to have a low threshold to transfuse. We will check labs in the a.m. 3. Obstructive sleep apnea, continue home CPAP. 4. Diabetes. Plan to hold Januvia. The patient will have blood glucoses q.a.c. with lispro sliding scale. 5. Lower extremity edema. The patient states she takes furosemide as needed for lower extremity edema, but has not done so in over a year. 6. Asthma. The patient states that she rarely if ever uses her albuterol and does well with her Advair and Singulair alone. 7. Code status is full code. 8. Disposition is to Surgical. TIME SPENT: Approximately 60 minutes were spent in the consultation of this patient, more than half the time spent with the patient at the bedside, reviewing the events leading up to this hospitalization, performing the physical examination, and reviewing the plan of care. GEORGINA WHEELER NP [id number]/[facility] #: [id number] AARON
[2017-06-05] MEDS: oxyCODONE/Acetamin 5/325 MG* TAB PO PRN ×4 (00:31→14:13)
[2017-06-05 05:42] LABS: Hematocrit 21 % (35-47); Hemoglobin 6.9 g/dl (12.0-16.0)
[2017-06-05 05:50] LABS: Comments Flag Yes
[2017-06-05 06:06] LABS: BUN/Creatinine Ratio 28.4 (8-20); Blood Urea Nitrogen 19 mg/dL (6-24); CO2 Carbon Dioxide 26 mmol/L (22-32); Calcium 8.4 mg/dL (8.6-10.3); Chloride 103 mmol/L (101-111); EGFR African American 115.9 (>60); EGFR Non-African American 90.1 (>60); Glucose 150 mg/dL (70-100); Sodium 134 mmol/L (133-145)
[2017-06-05 06:07] LABS: Anion Gap 5 mmol/L (2-11)
[2017-06-05] MEDS: Sertraline* 100 MG TAB PO SCH (07:20)
[2017-06-05] MEDS: LORazepam TAB(*) 0.5 MG PO SCH ×3 (07:20→23:01)
[2017-06-05] MEDS: oxyCODONE TAB* 5 MG TAB PO PRN ×3 (07:29→22:40)
[2017-06-05] MEDS: ceFAZolin 1 GM VIAL(*) 1 GM in NS 0.9% 50 ML* 50 ML IVPB SCH (07:30)
[2017-06-05] MEDS ORDERED: Enoxaparin(*) 40 MG/0.4 ML SYR SUBCUT SCH (08:00)
[2017-06-05] MEDS ORDERED: Magnesium Oxide TAB* 400 MG PO SCH (09:00)
[2017-06-05] MEDS ORDERED: Furosemide TAB* 20 MG PO SCH (09:00)
[2017-06-05] MEDS ORDERED: CMCS: SitaGLIPtin (NF) 100 MG TAB PO SCH (09:00)
[2017-06-05] MEDS: Mometasone/Formoter 200/5 MDI INH SCH ×2 (09:03→20:40)
[2017-06-05] MEDS: Fluticasone NASAL SPRAY 50MCG* 16 gm SPRAY BTL NASAL SCH (09:04)
[2017-06-05] MEDS: Docusate CAP* 100 MG PO SCH ×2 (09:05→23:01)
[2017-06-05] MEDS: Atorvastatin* 10 MG TAB PO SCH (09:05)
--- NOTE | 2017-06-05 10:37 | PN ---
Progress Note - Progress Note Date of Service: 06/05/17 SOAP: Subjective: []Patient was seen out of bed in chair today. She reports left hip pain described as spasm. She had some dizziness with standing last night but none since. Does have a history of meniere's disease she feels may have contribute. Objective: [] Laboratory Last Values Hgb 6.9 g/dl (12.0-16.0) L 06/05/17 04:34 Hct 21 % (35-47) L 06/05/17 04:34 INR (Anticoag Therapy) 1.17 (0.89-1.11) H 06/05/17 04:47 Sodium 134 mmol/L (133-145) 06/05/17 04:47 Potassium 3.8 mmol/L (3.5-5.0) 06/05/17 07:55 Chloride 103 mmol/L (101-111) 06/05/17 04:47 Carbon Dioxide 26 mmol/L (22-32) 06/05/17 04:47 Anion Gap 5 mmol/L (2-11) 06/05/17 04:47 BUN 19 mg/dL (6-24) 06/05/17 04:47 Creatinine 0.67 mg/dL (0.51-0.95) 06/05/17 04:47 Est GFR ( Amer) 115.9 (>60) 06/05/17 04:47 Est GFR (Non-Af Amer) 90.1 (>60) 06/05/17 04:47 BUN/Creatinine Ratio 28.4 (8-20) H 06/05/17 04:47 Glucose 150 mg/dL (70-100) H 06/05/17 04:47 POC Glucose (mg/dL) 180 mg/dL (70-100) H 06/04/17 16:51 Calcium 8.4 mg/dL (8.6-10.3) L 06/05/17 04:47 Blood Type O Negative 06/05/17 04:34 Antibody Screen Negative 06/05/17 04:34 Crossmatch See Detail 06/05/17 04:34 Vital Signs Temp 100.9 F 06/05/17 07:28 Pulse 92 06/05/17 07:28 Resp 20 06/05/17 09:29 BP 122/54 06/05/17 07:28 Pulse Ox 97 06/05/17 08:00 Intake & Output 06/04/17 06/05/17 06/05/17 18:59 06:59 18:59 Intake Total 2790 2070 956 Output Total 1600 1125 Balance 1190 945 956 Intake: IV Fluids 2400 950 783 LR 2350 950 783 NS 50ML, Cefazolin 2G 50 IVPB 173 LR 173 Oral 390 1120 Output: Cotter 400 875 Emesis 200 250 Estimated Blood Loss 1000 General: In chair, no acute distress. LLE: - Calf supple and nontender without erythema or edema - Sensation intact to light touch distally - DF/PF intact Assessment: [] POD #1 Left total hip arthroplasty, Dr Bishop. Plan: [] Partial weight bearing Add flexeril 10mg TID for pain control Coumadin 6mg today PRBC hanging in room today, to follow H&H Plan discharge home 1-2 days
[2017-06-05] MEDS ORDERED: Cyclobenzaprine TAB* 10 MG PO PRN (10:44)
--- NOTE | 2017-06-05 12:20 | OP ---
OPERATIVE REPORT: DATE OF OPERATION: 06/04/17 DATE OF : 59 ATTENDING SURGEON: Carmelina Bishop MD. FIELD REP: SHILO Gao Mr. Gil did help throughout the procedure with preparation of the leg, wound retraction, manipulation of the hip, and wound closure. ANESTHESIOLOGIST: Dr. Fields. ANESTHESIA: Spinal. PRE-OP DIAGNOSES: Severe end-stage degenerative osteoarthritis of the left hip. POST-OP DIAGNOSES: Severe end-stage degenerative osteoarthritis of the left hip. OPERATIVE PROCEDURE: Left total hip arthroplasty. Modifier for morbid obesity. COMPLICATIONS: None. ESTIMATED BLOOD LOSS: 400 cc. HARDWARE USED: This is Ralf uncemented total hip hardware. For the cup, a Tritanium 52D cluster-hole shell, a single 16 mm screw and a single 20 cm screw was used, a Trident X3 10 degree polyethylene insert 32D for the stem and Accolade TMZF size 2.5 with a 132-degree neck and for the head, a Biolox delta ceramic V40 femoral head 32 +0. BRIEF HISTORY/INDICATIONS: Ms. Caceres is a 61-year-old female with years of increasingly severe left hip pain. She improved well after her right total hip arthroplasty and elected to have left total hip arthroplasty. Radiographs showed [id number] arthritis and some dysplasia. Informed consent was obtained from the patient. She understood the risks of the surgery included but were not limited to bleeding, infection, damage to nearby structures, continued pain, need for further surgery, intraoperative fracture, nerve palsy, hardware failure or loosening, dislocation, leg length discrepancy, stroke, heart attack, blood clot, and . She wished to proceed. INTRAOPERATIVE FINDINGS: Intraoperatively, the patient was noted to have an extremely shallow and dysplastic acetabulum with thin peripheral holman. She had full-thickness loss of cartilage in the acetabulum and femoral head. She had morbidly obese body habitus, which made the surgery more challenging. The patient's morbid obesity added at least 60 operative minutes to the case. DESCRIPTION OF PROCEDURE: Ms. Caceres was identified in the preanesthesia unit. Her left lower extremity was marked as the correct operative side. Informed consent was signed and placed in the chart. The patient was taken to the operating room and placed under spinal anesthesia. A Cotter catheter was placed. The patient was placed in the right lateral decubitus position on the peg board with all bony prominences well padded. Left lower extremity was prepped and draped in the usual sterile fashion. Preop time-out was made to correctly identify the patient side and site. Appropriate perioperative antibiotics were given within 1 hour of the incision. A posterior hip incision was made with a 10 blade. Electrocautery was used to dissect down through subcutaneous fat. There was at least 10 cm of subcutaneous fat due to morbid obesity. Lateral fascial layer was incised in line with the skin incision. Charnley retractor was placed. Piriformis and conjoint tendons were identified and elevated off the posterolateral femur. These were tagged #5 Ethibonds. Next, a posterior capsular flap was made with electrocautery and tagged with #5 Ethibonds. The hip was carefully dislocated. Lesser troch to center of the femoral head measured 45 mm. Oscillating saw was used to make the appropriate femoral neck cut. Femoral head was sent to pathology. The femur was carefully retracted anteriorly. The acetabulum was noted to be dysplastic and shallow with extremely thin peripheral wall. There was significant osteophyte formation and loss of cartilage. The acetabulum was sequentially reamed up to a size 51. Bleeding subchondral bone bed was obtained. A size 52 Tritanium cluster-hole shell was chosen as the final implant. Final implant chosen was a Trident hemispherical acetabular shell 48D. This was impacted into the acetabulum and satisfactory stability was obtained. Appropriate anteversion and abduction angle were obtained. A single 6-mm and a single 20-mm screw were placed in the superior posterior quadrant for extra stability. A Trident X3 10-degree polyethylene liner was chosen and impacted into the acetabulum, this is a 52D. Attention was next turned to the preparation of the femur. A canal finder was used to enter the proximal femur. This portion of the procedure was made more complicated by the patient's morbid obesity as were all steps of the procedure. The femoral canal was sequentially broached up to a size 2.5. A 2.5 broach had satisfactory fit. A 132 neck trial and a 32 plus 0 head trial were chosen. Lesser troch was set in the femoral head measured 48 mm. The hip was reduced and taken through a range of motion. The hip was stable in all positions. There was appropriate soft tissue tension and leg lengths. The hip was carefully dislocated. All trials were carefully removed. Accolade TMZF stem, size 2.5 with a 132-degree neck was chosen as the final implant. This was impacted into the femoral canal. A Biolox delta ceramic V40 femoral head 36 plus 0 was chosen as a final head. This was impacted on to the femoral neck without difficulty. The hip was carefully reduced and taken through a range of motion. The hip was stable in all positions. The hip was copiously irrigated with sterile saline. Previously tagged capsule and tendons were reapproximated to the posterolateral femur through 2 trochanteric drill holes. Lateral fascial layer was closed using interrupted #1 Vicryls. The rest of the incision was closed in a layered fashion using 0 and 2-0 Vicryls. The skin was closed using running 3-0 Monocryl and Dermabond. Sterile Adaptic, 4x4's, and paper tape were used to cover the incision. The patient's anesthesia was reversed without difficulty. She was taken to the PACU in stable condition. Intended weightbearing will be weightbearing as tolerated. Intended DVT prophylaxis will be Coumadin with a Lovenox bridge. [id number]/[facility] #: [id number] FAXTON HOSPITALJoya
--- NOTE | 2017-06-05 13:40 | PN ---
Subjective Date of Service: 06/05/17 Interval History: Pt s/p left total hip. Hgb down to 6.9. getting 2u prbc. pain in left hip and groin. Hx of IT band issues on left since August right total hip. Was taking 800mg of ibuprofen TID at home for this pain. Denies GI bleeding. Objective Active Medications: Acetaminophen (Tylenol Tab*) 650 mg PO Q4H PRN PRN Reason: PAIN OR TEMPERATURE Albuterol (Ventolin Hfa Inhaler*) 2 puff INH Q4H PRN PRN Reason: SOB/WHEEZING Atorvastatin Calcium (Lipitor*) 10 mg PO DAILY [facility] Last Admin: 06/05/17 09:05 Dose: 10 mg Bisacodyl (Dulcolax Supp*) 10 mg [place] DAILY PRN PRN Reason: constipation Cetirizine HCl (Zyrtec*) 10 mg PO DAILY PRN; Protocol PRN Reason: CONGESTION Cyclobenzaprine HCl (Flexeril Tab*) 10 mg PO TID PRN PRN Reason: PAIN Last Admin: 06/05/17 11:24 Dose: 10 mg Diphenhydramine HCl (Benadryl Iv*) 12.5 mg IV Q6H PRN PRN Reason: PRURITIS Docusate Sodium (Colace Cap*) 100 mg PO BID [facility] Last Admin: 06/05/17 09:05 Dose: 100 mg Enoxaparin Sodium (Lovenox(*)) 40 mg SUBCUT Q24H [facility] Last Admin: 06/05/17 09:06 Dose: 40 mg Fluticasone Propionate (Flonase Nasal [place] 50mcg*) 2 spray NASAL DAILY [facility] Last Admin: 06/05/17 09:04 Dose: 2 spray Lactated Ringer's (Lactated Ringers 1000 Ml Bag*) 1,000 mls @ 100 mls/hr IV PER RATE [facility] Last Admin: 06/04/17 23:49 Dose: 100 mls/hr Lactulose (Lactulose*) 30 ml PO Q6H PRN PRN Reason: constipation Lorazepam (Ativan Tab(*)) 0.5 mg PO TID [facility] Last Admin: 06/05/17 07:20 Dose: 0.5 mg Magnesium Hydroxide (Milk Of Magnesia Liq*) 30 ml PO Q6H PRN PRN Reason: constipation Magnesium Oxide (Magox 400 Tab*) 400 mg PO 2100 [facility] Meclizine HCl (Antivert Tab*) 25 mg PO TID PRN PRN Reason: VERTIGO Mometasone Furoate/Formoterol Fumar (Dulera 200/5 Mdi*) 2 puff INH BID [facility] Last Admin: 06/05/17 09:03 Dose: 2 puff Montelukast Sodium (Singulair Tab*) 10 mg PO QPM [facility] Last Admin: 06/04/17 16:46 Dose: 10 mg Morphine Sulfate (Morphine Inj (Syringe)*) 2 mg IV Q2H PRN PRN Reason: PAIN Last Admin: 06/05/17 11:48 Dose: 2 mg Ondansetron HCl (Zofran Inj*) 4 mg IV Q6H PRN PRN Reason: nausea Ondansetron HCl (Zofran Tab*) 4 mg PO Q6H PRN PRN Reason: NAUSEA Oxycodone HCl (Roxycodone Tab*) 10 mg PO Q4H PRN PRN Reason: SEVERE PAIN Last Admin: 06/05/17 07:29 Dose: 10 mg Oxycodone/Acetaminophen (Percocet 5/325 Tab*) 1 tab PO Q3H PRN PRN Reason: PAIN - MODERATE Oxycodone/Acetaminophen (Percocet 5/325 Tab*) 2 tab PO Q3H PRN PRN Reason: PAIN - MODERATE Last Admin: 06/05/17 09:14 Dose: 2 tab Pharmacy Profile Note (Scopolomine Patch Remove*) 1 note PATCH OFF Q72H ONE Stop: 06/07/17 08:44 Pharmacy Profile Note (Coumadin Daily Reminder*) 1 note FOLLOW UP 1700 [facility] Polyethylene Glycol/Electrolytes (Miralax*) 17 gm PO DAILY PRN PRN Reason: Constipation Sertraline HCl (Zoloft*) 150 mg PO DAILY [facility] Last Admin: 06/05/17 07:20 Dose: 150 mg Warfarin Sodium (Coumadin Tab(*)) 6 mg PO ONCE@1700 ONE PRN Reason: Protocol Stop: 06/05/17 17:01 Vital Signs 06/04/17 06/04/17 06/04/17 14:15 14:44 15:14 Temperature 97.8 F 97.9 F Pulse Rate 82 72 Respiratory 16 16 12 Rate Blood Pressure 103/56 98/56 (mmHg) O2 Sat by Pulse 97 100 Oximetry 06/04/17 06/04/17 06/04/17 15:15 16:04 16:07 Temperature 97.9 F 97.9 F Pulse Rate 72 72 Respiratory 12 16 16 Rate Blood Pressure 98/56 114/57 (mmHg) O2 Sat by Pulse 100 100 Oximetry 06/04/17 06/04/17 06/04/17 18:07 20:00 20:10 Temperature 99.8 F Pulse Rate 83 Respiratory 16 16 16 Rate Blood Pressure 110/54 (mmHg) O2 Sat by Pulse 98 Oximetry 06/04/17 06/04/17 06/04/17 20:14 20:15 20:20 Temperature Pulse Rate 87 Respiratory 16 18 Rate Blood Pressure (mmHg) O2 Sat by Pulse 99 99 Oximetry 06/04/17 06/04/17 06/05/17 22:20 23:27 00:31 Temperature 99.2 F Pulse Rate 82 Respiratory 16 16 16 Rate Blood Pressure 117/55 (mmHg) O2 Sat by Pulse 99 Oximetry 06/05/17 06/05/17 06/05/17 02:31 03:20 04:16 Temperature 100.0 F Pulse Rate 87 Respiratory 14 16 18 Rate Blood Pressure 116/52 (mmHg) O2 Sat by Pulse 97 Oximetry 06/05/17 06/05/17 06/05/17 06:16 07:20 07:28 Temperature 100.9 F Pulse Rate 92 Respiratory 16 16 17 Rate Blood Pressure 122/54 (mmHg) O2 Sat by Pulse 97 Oximetry 06/05/17 06/05/17 06/05/17 07:29 08:00 08:14 Temperature 100.6 F Pulse Rate 89 Respiratory 16 20 Rate Blood Pressure 115/59 (mmHg) O2 Sat by Pulse 97 97 Oximetry 06/05/17 06/05/17 06/05/17 09:08 09:14 09:17 Temperature 100.6 F Pulse Rate 84 Respiratory 20 18 Rate Blood Pressure 115/48 (mmHg) O2 Sat by Pulse 98 Oximetry 06/05/17 06/05/17 06/05/17 09:29 11:14 11:24 Temperature Pulse Rate Respiratory 20 18 18 Rate Blood Pressure (mmHg) O2 Sat by Pulse Oximetry 06/05/17 06/05/17 06/05/17 11:28 11:48 12:06 Temperature 100.3 F 99.4 F Pulse Rate 87 86 Respiratory 18 20 18 Rate Blood Pressure 114/55 119/48 (mmHg) O2 Sat by Pulse 99 98 Oximetry 06/05/17 06/05/17 06/05/17 12:33 12:48 13:14 Temperature 99.6 F Pulse Rate 86 Respiratory 20 18 18 Rate Blood Pressure 114/47 (mmHg) O2 Sat by Pulse 97 Oximetry Oxygen Devices in Use Now: Nasal Cannula Appearance: moderate distress. Lying in bed. Ears/Nose/Mouth/Throat: Mucous Membranes Moist Neck: NL Appearance and Movements; NL JVP, Trachea Midline Respiratory: Symmetrical Chest Expansion and Respiratory Effort, - - CTAB anteriorly Cardiovascular: NL Sounds; No Murmurs; No JVD, RRR Abdominal: NL Sounds; No Tenderness; No Distention, No Hepatosplenomegaly Extremities: No Edema Skin: No Rash or Ulcers Neurological: Alert and Oriented x 3 Result Diagrams: 06/05/17 04:34 06/05/17 07:55 Additional Lab and Data: Laboratory Results - last 24 hr 06/04/17 06/05/17 06/05/17 16:51 04:34 04:34 Hgb 6.9 L Hct 21 L INR (Anticoag Therapy) Sodium Potassium Chloride Carbon Dioxide Anion Gap BUN Creatinine Est GFR ( Amer) Est GFR (Non-Af Amer) BUN/Creatinine Ratio Glucose POC Glucose (mg/dL) 180 H Calcium Blood Type O Negative Antibody Screen Negative Crossmatch See Detail 06/05/17 06/05/17 06/05/17 04:47 04:47 07:55 Hgb Hct INR (Anticoag Therapy) 1.17 H Sodium 134 Potassium TNP 3.8 Chloride 103 Carbon Dioxide 26 Anion Gap 5 BUN 19 Creatinine 0.67 Est GFR ( Amer) 115.9 Est GFR (Non-Af Amer) 90.1 BUN/Creatinine Ratio 28.4 H Glucose 150 H POC Glucose (mg/dL) Calcium 8.4 L Blood Type Antibody Screen Crossmatch Assess/Plan/Problems-Billing Assessment: 61 yo female PMH NIDM, obesity, Anemia, morbid obesity, OA s/p RTH and now LTH arthroplasty. c/b anemia to 6.9 getting 2u prbc. - Patient Problems (1) DVT prophylaxis Current Visit: No Status: Acute Code(s): HHJ3151 - SNOMED Code(s): 965038633 Comment: Warfarin 6mg daily Per Ortho. lovenox until therapeutic. INR daily (2) Anxiety Current Visit: No Status: Chronic Code(s): F41.9 - ANXIETY DISORDER, UNSPECIFIED SNOMED Code(s): 95765320 Comment: - Continue home lorazepam 0.5mg TID - continue zoloft 150mg daily. (3) Diabetes Current Visit: No Status: Chronic Code(s): E11.9 - TYPE 2 DIABETES MELLITUS WITHOUT COMPLICATIONS SNOMED Code(s): 94820642 Comment: - Glucose 120-160's - Resume metformin and Januvia (4) CHEN (obstructive sleep apnea) Current Visit: No Status: Chronic Code(s): G47.33 - OBSTRUCTIVE SLEEP APNEA (ADULT) (PEDIATRIC) SNOMED Code(s): 38410588 Comment: - Continue home CPAP (5) Acute blood loss anemia Current Visit: Yes Status: Acute Code(s): D62 - ACUTE POSTHEMORRHAGIC ANEMIA SNOMED Code(s): 182751257 Comment: in setting of chronic anemia and large (2400mg daily ibuprofen at home). recommend dose reduction. type and screen and 2u prbc today (ordered by ortho) (6) Status post total hip replacement, left Current Visit: Yes Status: Acute Code(s): Z96.642 - PRESENCE OF LEFT ARTIFICIAL HIP JOINT SNOMED Code(s): 058194599038 Comment: pain control per ortho. flexeril added Hx of IT band issues. physical therapy (7) Asthma Current Visit: No Status: Chronic Code(s): J45.909 - UNSPECIFIED ASTHMA, UNCOMPLICATED SNOMED Code(s): 244417700 Comment: - Continue dulera, singular and Albuterol PRN Status and Disposition: medicine consulting. ortho primary.
[2017-06-05] MEDS ORDERED: Warfarin TAB(*) 6 MG PO ONE (17:00)
[2017-06-05 17:49] LABS: Urine Bacteria 1+ (Absent); Urine Bilirubin Negative (Negative); Urine Glucose Negative (Negative); Urine Nitrite Negative (Negative)
[2017-06-05] MEDS: Montelukast Sodium TAB* 10 MG PO SCH (18:36)
[2017-06-05] MEDS: Magnesium Oxide TAB* 400 MG PO SCH (23:01)
[2017-06-06] MEDS: oxyCODONE TAB* 5 MG TAB PO PRN (05:20)
[2017-06-06 05:58] LABS: Hematocrit 24 % (35-47); Hemoglobin 8.2 g/dl (12.0-16.0)
[2017-06-06] MEDS: Fluticasone NASAL SPRAY 50MCG* 16 gm SPRAY BTL NASAL SCH (08:36)
[2017-06-06] MEDS: Mometasone/Formoter 200/5 MDI INH SCH ×2 (08:36→20:25)
[2017-06-06] MEDS: LORazepam TAB(*) 0.5 MG PO SCH ×3 (08:37→20:24)
[2017-06-06] MEDS: Docusate CAP* 100 MG PO SCH ×2 (08:37→20:24)
[2017-06-06] MEDS: Sertraline* 100 MG TAB PO SCH (08:37)
[2017-06-06] MEDS: Atorvastatin* 10 MG TAB PO SCH (08:37)
[2017-06-06] MEDS: Magnesium Hydroxide LIQ* 30 ML UDC PO PRN ×2 (08:38→17:25)
[2017-06-06] MEDS: oxyCODONE/Acetamin 5/325 MG* TAB PO PRN ×4 (08:41→20:27)
--- NOTE | 2017-06-06 10:38 | PN ---
Progress Note - Progress Note Date of Service: 06/06/17 SOAP: Subjective: []Patient seen OOB in chair. Feels better today after receiving 2 units of blood yesterday. She has improved with PT but still feels unsafe to be home alone and wants to consider short term rehab. She is interested in contacting her friend who is a possum trapper in the [place] area for transfer to that facility if possible. Objective: [] Vital Signs Temp 99.2 F 06/06/17 07:35 Pulse 88 06/06/17 07:35 Resp 18 06/06/17 08:41 BP 125/65 06/06/17 07:35 Pulse Ox 97 06/06/17 08:00 Intake & Output 06/05/17 06/06/17 06/06/17 18:59 06:59 18:59 Intake Total 1924 500 230 Output Total 1600 1250 350 Balance 324 -750 -120 Intake: IV Fluids 937 LR 783 ns 154 IVPB 173 LR 173 Oral 225 500 230 Packed Cells 589 Output: Urine 600 1250 350 Cotter 1000 Laboratory Results - last 24 hr 06/05/17 06/05/17 06/06/17 04:34 17:30 05:47 Hgb Hct INR (Anticoag Therapy) 2.25 H Urine Color Straw Urine Appearance Clear Urine pH 6.0 Ur Specific [place] 1.005 L Urine Protein Negative Urine Ketones Negative Urine Blood 2+ H Urine Nitrate Negative Urine Bilirubin Negative Urine Urobilinogen Negative Ur Leukocyte Esterase Negative Urine WBC (Auto) Trace(0-5/hpf) Urine RBC (Auto) 1+(3-5/hpf) H Ur Squamous Epith Cells Present H Urine Bacteria 1+ H Urine Glucose Negative Blood Type O Negative Antibody Screen Negative Crossmatch See Detail 06/06/17 05:48 Hgb 8.2 L Hct 24 L INR (Anticoag Therapy) Urine Color Urine Appearance Urine pH Ur Specific [place] Urine Protein Urine Ketones Urine Blood Urine Nitrate Urine Bilirubin Urine Urobilinogen Ur Leukocyte Esterase Urine WBC (Auto) Urine RBC (Auto) Ur Squamous Epith Cells Urine Bacteria Urine Glucose Blood Type Antibody Screen Crossmatch Left hip dressings were removed minimal old bloody drainage on dressings, wound is benign calf NT and soft +DF/PF left ankle sensation remains intact distally Assessment: []s/p Left total hip arthroplasty POD #2 post operative Acute blood loss anemia Plan: []PT/OT WBAT LLE Rehab placement with case management assistance Discontinue Lovenox Hold Coumadin today
[2017-06-06] MEDS: Montelukast Sodium TAB* 10 MG PO SCH (17:26)
--- NOTE | 2017-06-06 18:29 | PN ---
Subjective Date of Service: 06/06/17 Interval History: feeling much better. Transferring better. some suprapubic discomfort. Febrile yesterday but not today. 25-50K Klebsiella on UCx. Objective Active Medications: Acetaminophen (Tylenol Tab*) 650 mg PO Q4H PRN PRN Reason: PAIN OR TEMPERATURE Last Admin: 06/05/17 20:47 Dose: 650 mg Albuterol (Ventolin Hfa Inhaler*) 2 puff INH Q4H PRN PRN Reason: SOB/WHEEZING Atorvastatin Calcium (Lipitor*) 10 mg PO DAILY [facility] Last Admin: 06/06/17 08:37 Dose: 10 mg Bisacodyl (Dulcolax Supp*) 10 mg [place] DAILY PRN PRN Reason: constipation Cetirizine HCl (Zyrtec*) 10 mg PO DAILY PRN; Protocol PRN Reason: CONGESTION Ciprofloxacin (Cipro Tab*) 500 mg PO DAILY [facility] Stop: 06/09/17 18:59 Cyclobenzaprine HCl (Flexeril Tab*) 10 mg PO TID PRN PRN Reason: PAIN Last Admin: 06/05/17 11:24 Dose: 10 mg Diphenhydramine HCl (Benadryl Iv*) 12.5 mg IV Q6H PRN PRN Reason: PRURITIS Docusate Sodium (Colace Cap*) 100 mg PO BID [facility] Last Admin: 06/06/17 08:37 Dose: 100 mg Fluticasone Propionate (Flonase Nasal [place] 50mcg*) 2 spray NASAL DAILY [facility] Last Admin: 06/06/17 08:36 Dose: 2 spray Lactated Ringer's (Lactated Ringers 1000 Ml Bag*) 1,000 mls @ 100 mls/hr IV PER RATE [facility] Last Admin: 06/04/17 23:49 Dose: 100 mls/hr Lactulose (Lactulose*) 30 ml PO Q6H PRN PRN Reason: constipation Lorazepam (Ativan Tab(*)) 0.5 mg PO TID [facility] Last Admin: 06/06/17 14:36 Dose: 0.5 mg Magnesium Hydroxide (Milk Of Magnesia Liq*) 30 ml PO Q6H PRN PRN Reason: constipation Last Admin: 06/06/17 17:25 Dose: 30 ml Magnesium Oxide (Magox 400 Tab*) 400 mg PO 2100 [facility] Last Admin: 06/05/17 23:01 Dose: 400 mg Meclizine HCl (Antivert Tab*) 25 mg PO TID PRN PRN Reason: VERTIGO Mometasone Furoate/Formoterol Fumar (Dulera 200/5 Mdi*) 2 puff INH BID [facility] Last Admin: 06/06/17 08:36 Dose: 2 puff Montelukast Sodium (Singulair Tab*) 10 mg PO QPM [facility] Last Admin: 06/06/17 17:26 Dose: 10 mg Morphine Sulfate (Morphine Inj (Syringe)*) 2 mg IV Q2H PRN PRN Reason: PAIN Last Admin: 06/05/17 11:48 Dose: 2 mg Ondansetron HCl (Zofran Inj*) 4 mg IV Q6H PRN PRN Reason: nausea Ondansetron HCl (Zofran Tab*) 4 mg PO Q6H PRN PRN Reason: NAUSEA Oxycodone HCl (Roxycodone Tab*) 10 mg PO Q4H PRN PRN Reason: SEVERE PAIN Last Admin: 06/06/17 05:20 Dose: 10 mg Oxycodone/Acetaminophen (Percocet 5/325 Tab*) 1 tab PO Q3H PRN PRN Reason: PAIN - MODERATE Oxycodone/Acetaminophen (Percocet 5/325 Tab*) 2 tab PO Q3H PRN PRN Reason: PAIN - MODERATE Last Admin: 06/06/17 17:26 Dose: 2 tab Pharmacy Profile Note (Scopolomine Patch Remove*) 1 note PATCH OFF Q72H ONE Stop: 06/07/17 08:44 Pharmacy Profile Note (Coumadin Daily Reminder*) 1 note FOLLOW UP 1700 [facility] Last Admin: 06/06/17 17:02 Dose: Not Given Polyethylene Glycol/Electrolytes (Miralax*) 17 gm PO DAILY PRN PRN Reason: Constipation Sertraline HCl (Zoloft*) 150 mg PO DAILY [facility] Last Admin: 06/06/17 08:37 Dose: 150 mg Vital Signs 06/05/17 06/05/17 06/05/17 18:36 20:00 20:36 Temperature Pulse Rate Respiratory 16 18 16 Rate Blood Pressure (mmHg) O2 Sat by Pulse Oximetry 06/05/17 06/05/17 06/05/17 20:38 22:40 23:01 Temperature 101.8 F Pulse Rate 91 Respiratory 22 16 16 Rate Blood Pressure 123/44 (mmHg) O2 Sat by Pulse 94 Oximetry 06/05/17 06/06/17 06/06/17 23:04 00:40 03:29 Temperature 100.0 F 99.9 F Pulse Rate 87 84 Respiratory 20 16 18 Rate Blood Pressure 130/57 128/54 (mmHg) O2 Sat by Pulse 98 98 Oximetry 06/06/17 06/06/17 06/06/17 05:20 07:20 07:35 Temperature 99.2 F Pulse Rate 88 Respiratory 16 18 18 Rate Blood Pressure 125/65 (mmHg) O2 Sat by Pulse 97 Oximetry 06/06/17 06/06/17 06/06/17 08:00 08:37 08:41 Temperature Pulse Rate Respiratory 18 18 18 Rate Blood Pressure (mmHg) O2 Sat by Pulse 97 Oximetry 06/06/17 06/06/17 06/06/17 10:37 10:41 11:18 Temperature 98.5 F Pulse Rate 84 Respiratory 16 16 16 Rate Blood Pressure 126/50 (mmHg) O2 Sat by Pulse 93 Oximetry 06/06/17 06/06/17 06/06/17 12:03 14:03 14:36 Temperature Pulse Rate Respiratory 18 18 18 Rate Blood Pressure (mmHg) O2 Sat by Pulse Oximetry 06/06/17 06/06/17 06/06/17 15:30 16:00 16:36 Temperature 98.5 F Pulse Rate 83 Respiratory 18 18 Rate Blood Pressure 102/54 (mmHg) O2 Sat by Pulse 92 92 Oximetry 06/06/17 17:26 Temperature Pulse Rate Respiratory 18 Rate Blood Pressure (mmHg) O2 Sat by Pulse Oximetry Oxygen Devices in Use Now: None, CPAP Appearance: NAD, sitting in recliner. Eyes: No Scleral Icterus, PERRLA Ears/Nose/Mouth/Throat: NL Teeth, Lips, Gums, Mucous Membranes Moist Neck: NL Appearance and Movements; NL JVP Respiratory: Symmetrical Chest Expansion and Respiratory Effort, Clear to Auscultation Cardiovascular: NL Sounds; No Murmurs; No JVD, RRR Abdominal: - - slight suprapubic tenderness. Extremities: No Edema, No Clubbing, Cyanosis Skin: No Rash or Ulcers Neurological: Alert and Oriented x 3, - - PEREZ Result Diagrams: 06/06/17 05:48 06/05/17 07:55 Additional Lab and Data: Laboratory Results - last 24 hr 06/06/17 06/06/17 05:47 05:48 Hgb 8.2 L Hct 24 L INR (Anticoag Therapy) 2.25 H Microbiology and Other Data: Microbiology 06/05/17 17:30 Urine Culture - Preliminary Urine Klebsiella Pneumoniae Assess/Plan/Problems-Billing Assessment: 61 yo female PMH NIDM, obesity, Anemia, morbid obesity, OA s/p RTH and now LTH arthroplasty. c/b anemia to 6.9 s/p 2u prbc. post/op fevers, UCx with 25-50K Klebsiella Pna. starting short course cipro. - Patient Problems (1) DVT prophylaxis Current Visit: No Status: Acute Code(s): [id number] - SNOMED Code(s): 039555795 Comment: INR to 2.25 from 1.17, (Warfarin 6mg, 6mg) stopped by Ortho. lovenox stopped. INR daily (2) Anxiety Current Visit: No Status: Chronic Code(s): F41.9 - ANXIETY DISORDER, UNSPECIFIED SNOMED Code(s): 78646474 Comment: - Continue home lorazepam 0.5mg TID - continue zoloft 150mg daily. (3) Diabetes Current Visit: No Status: Chronic Code(s): E11.9 - TYPE 2 DIABETES MELLITUS WITHOUT COMPLICATIONS SNOMED Code(s): 47083199 Comment: - Glucose 150-190's SSI while in house, POCT (4) CHEN (obstructive sleep apnea) Current Visit: No Status: Chronic Code(s): G47.33 - OBSTRUCTIVE SLEEP APNEA (ADULT) (PEDIATRIC) SNOMED Code(s): 88020863 Comment: - Continue home CPAP (5) Acute blood loss anemia Current Visit: Yes Status: Acute Code(s): D62 - ACUTE POSTHEMORRHAGIC ANEMIA SNOMED Code(s): 503079499 Comment: in setting of chronic anemia and large (2400mg daily ibuprofen at home). recommend dose reduction on discharge. type and screen and s/p 2u prbc 06/05 (6) Status post total hip replacement, left Current Visit: Yes Status: Acute Code(s): Z96.642 - PRESENCE OF LEFT ARTIFICIAL HIP JOINT SNOMED Code(s): 708616174923 Comment: pain control per ortho. flexeril Hx of IT band issues. physical therapy -> plan for home PT (7) Asthma Current Visit: No Status: Chronic Code(s): J45.909 - UNSPECIFIED ASTHMA, UNCOMPLICATED SNOMED Code(s): 138732037 Comment: - Continue dulera, singular and Albuterol PRN (8) UTI (urinary tract infection) Current Visit: Yes Status: Acute Comment: klebsiella pna 25-50k with some suprapubic pain. hx of a cefaclor and bactrim allergy. Will start cipro 500mg daily x 3 days, f/u sensitivities. fever curve improving. Status and Disposition: medicine consulting. ortho primary. likely d/c home 06/07 Attending: Eduardo Carrion
[2017-06-06] MEDS: Ciprofloxacin TAB* 500 MG PO SCH (18:53)
[2017-06-06] MEDS: Magnesium Oxide TAB* 400 MG PO SCH (20:24)
[2017-06-07] MEDS: oxyCODONE TAB* 5 MG TAB PO PRN (01:54)
[2017-06-07 05:34] LABS: Hematocrit 23 % (35-47); Hemoglobin 7.6 g/dl (12.0-16.0)
[2017-06-07] MEDS: oxyCODONE/Acetamin 5/325 MG* TAB PO PRN ×2 (06:57→11:21)
[2017-06-07] MEDS ORDERED: Scopolomine PATCH Remove* 1 NOTE MISC PATCH OFF ONE (08:43)
[2017-06-07] MEDS: Atorvastatin* 10 MG TAB PO SCH (08:46)
[2017-06-07] MEDS: LORazepam TAB(*) 0.5 MG PO SCH (08:46)
[2017-06-07] MEDS: Ciprofloxacin TAB* 500 MG PO SCH (08:46)
[2017-06-07] MEDS: Sertraline* 100 MG TAB PO SCH (08:46)
[2017-06-07] MEDS: Docusate CAP* 100 MG PO SCH (08:47)
[2017-06-07] MEDS: Fluticasone NASAL SPRAY 50MCG* 16 gm SPRAY BTL NASAL SCH (08:48)
[2017-06-07] MEDS: Mometasone/Formoter 200/5 MDI INH SCH (08:48)
--- NOTE | 2017-06-07 11:00 | PN ---
Progress Note - Progress Note Date of Service: 06/07/17 SOAP: Subjective: []Patient seen OOB in chair. She is feeling well with good pain control. She denies dizziness and states that her hemoglobin is low normal at baseline. Objective: [] Vital Signs Temp 99.8 F 06/07/17 07:38 Pulse 77 06/07/17 07:38 Resp 18 06/07/17 10:46 BP 110/53 06/07/17 07:38 Pulse Ox 98 06/07/17 07:38 Intake & Output 06/06/17 06/07/17 06/07/17 18:59 06:59 18:59 Intake Total 1115 700 Output Total 600 775 Balance 515 -75 Intake: Oral 1115 700 Output: Urine 600 775 Other: Estimated Void Small Medium # Bowel Movements 1 Estimated Stool Amount Small # Voids 2 1 Laboratory Last Values Hgb 7.6 g/dl (12.0-16.0) L 06/07/17 05:11 Hct 23 % (35-47) L 06/07/17 05:11 INR (Anticoag Therapy) 1.85 (0.89-1.11) H 06/07/17 05:11 Sodium 134 mmol/L (133-145) 06/05/17 04:47 Potassium 3.8 mmol/L (3.5-5.0) 06/05/17 07:55 Chloride 103 mmol/L (101-111) 06/05/17 04:47 Carbon Dioxide 26 mmol/L (22-32) 06/05/17 04:47 Anion Gap 5 mmol/L (2-11) 06/05/17 04:47 BUN 19 mg/dL (6-24) 06/05/17 04:47 Creatinine 0.67 mg/dL (0.51-0.95) 06/05/17 04:47 Est GFR ( Amer) 115.9 (>60) 06/05/17 04:47 Est GFR (Non-Af Amer) 90.1 (>60) 06/05/17 04:47 BUN/Creatinine Ratio 28.4 (8-20) H 06/05/17 04:47 Glucose 150 mg/dL (70-100) H 06/05/17 04:47 POC Glucose (mg/dL) 180 mg/dL (70-100) H 06/04/17 16:51 Calcium 8.4 mg/dL (8.6-10.3) L 06/05/17 04:47 Urine Color Straw 06/05/17 17:30 Urine Appearance Clear 06/05/17 17:30 Urine pH 6.0 (5-9) 06/05/17 17:30 Ur Specific [place] 1.005 (1.010-1.030) L 06/05/17 17:30 Urine Protein Negative (Negative) 06/05/17 17:30 Urine Ketones Negative (Negative) 06/05/17 17:30 Urine Blood 2+ (Negative) H 06/05/17 17:30 Urine Nitrate Negative (Negative) 06/05/17 17:30 Urine Bilirubin Negative (Negative) 06/05/17 17:30 Urine Urobilinogen Negative (Negative) 06/05/17 17:30 Ur Leukocyte Esterase Negative (Negative) 06/05/17 17:30 Urine WBC (Auto) Trace(0-5/hpf) (Absent) 06/05/17 17:30 Urine RBC (Auto) 1+(3-5/hpf) (Absent) H 06/05/17 17:30 Ur Squamous Epith Cells Present (Absent) H 06/05/17 17:30 Urine Bacteria 1+ (Absent) H 06/05/17 17:30 Urine Glucose Negative (Negative) 06/05/17 17:30 Blood Type O Negative 06/05/17 04:34 Antibody Screen Negative 06/05/17 04:34 Crossmatch See Detail 06/05/17 04:34 General: Patient appears well, no acute distress Left Lower Extremity: - Dressing CDI, changed today. Incision healing well without drainage or erythema of wound edges - Sensation intact distally - DP/ PT pulses 2+ - Dorsiflexion and plantarflexion intact. Laboratory Last Values Assessment: []Left total hip arthroplasty POD#3 Plan: [] UTI managed by hospitalist with cipro CBC to be drawn 06/10 with INR by home nursing 50% weight bearing Coumadin 2mg 06/07, 4mg 06/08, 2 mg 06/09 and recheck 06/10/17 Percocet for baseline pain control, oxycodone sent in to alternate Q 4 hours PRN
[2017-06-07 12:56] VITALS: BP 133/54
--- NOTE | 2017-06-07 15:13 | PN ---
Subjective Date of Service: 06/07/17 Interval History: improves daily, planned home today. working well with physical therapy. cipro started for UTI. Objective Vital Signs 06/06/17 06/06/17 06/06/17 15:30 16:00 16:36 Temperature 98.5 F Pulse Rate 83 Respiratory 18 18 Rate Blood Pressure 102/54 (mmHg) O2 Sat by Pulse 92 92 Oximetry 06/06/17 06/06/17 06/06/17 17:26 19:26 19:35 Temperature 100.1 F Pulse Rate 98 Respiratory 18 16 18 Rate Blood Pressure 152/52 (mmHg) O2 Sat by Pulse 93 Oximetry 06/06/17 06/06/17 06/06/17 20:24 20:27 21:08 Temperature Pulse Rate Respiratory 16 16 16 Rate Blood Pressure (mmHg) O2 Sat by Pulse Oximetry 06/06/17 06/06/17 06/06/17 22:24 22:27 23:30 Temperature 98.3 F Pulse Rate 86 Respiratory 16 16 16 Rate Blood Pressure 129/55 (mmHg) O2 Sat by Pulse 98 Oximetry 06/07/17 06/07/17 06/07/17 01:54 03:39 03:54 Temperature 98.4 F Pulse Rate 78 Respiratory 18 18 16 Rate Blood Pressure 116/55 (mmHg) O2 Sat by Pulse 99 Oximetry 06/07/17 06/07/17 06/07/17 06:57 07:38 08:00 Temperature 99.8 F Pulse Rate 77 Respiratory 16 18 18 Rate Blood Pressure 110/53 (mmHg) O2 Sat by Pulse 98 98 Oximetry 06/07/17 06/07/17 06/07/17 08:46 08:57 10:46 Temperature Pulse Rate Respiratory 18 18 18 Rate Blood Pressure (mmHg) O2 Sat by Pulse Oximetry 06/07/17 06/07/17 06/07/17 11:20 11:21 13:20 Temperature 99.0 F Pulse Rate 79 Respiratory 17 18 18 Rate Blood Pressure 133/54 (mmHg) O2 Sat by Pulse 96 Oximetry Oxygen Devices in Use Now: CPAP Result Diagrams: 06/07/17 05:11 06/05/17 07:55 Additional Lab and Data: Laboratory Results - last 24 hr 06/06/17 06/06/17 05:47 05:48 Hgb 8.2 L Hct 24 L INR (Anticoag Therapy) 2.25 H Microbiology and Other Data: Microbiology 06/05/17 17:30 Urine Culture - Preliminary Urine Klebsiella Pneumoniae Assess/Plan/Problems-Billing Assessment: 61 yo female PMH NIDM, obesity, Anemia, morbid obesity, OA s/p RTH and now LTH arthroplasty. c/b anemia to 6.9 s/p 2u prbc. post/op fevers, UCx with 25-50K Klebsiella Pna. starting short course cipro. planned d/c 06/07 - Patient Problems (1) DVT prophylaxis Status: Acute Code(s): FDV0093 - SNOMED Code(s): 228300335 Comment: INR to 1.85 from 2.25 from 1.17, (got Warfarin 0mg, 6mg, 6mg) Per ortho geting 2, 4 then 2mg with INR check. (2) Anxiety Status: Chronic Code(s): F41.9 - ANXIETY DISORDER, UNSPECIFIED SNOMED Code(s ): 70592246 Comment: - Continue home lorazepam 0.5mg TID - continue zoloft 150mg daily. (3) Diabetes Status: Chronic Code(s): E11.9 - TYPE 2 DIABETES MELLITUS WITHOUT COMPLICATIONS SNOMED Code(s): 41884108 Comment: - Glucose 150-190's SSI while in house, POCT (4) CHEN (obstructive sleep apnea) Status: Chronic Code(s): G47.33 - OBSTRUCTIVE SLEEP APNEA (ADULT) (PEDIATRIC) SNOMED Code(s): 34140523 Comment: - Continue home CPAP (5) Acute blood loss anemia Status: Acute Code(s): D62 - ACUTE POSTHEMORRHAGIC ANEMIA SNOMED Code(s): 010219401 Comment: in setting of chronic anemia and large (2400mg daily ibuprofen at home). recommend dose reduction on discharge. type and screen and s/p 2u prbc 06/05 hgb to 7.6 from 8.2 (6) Status post total hip replacement, left Status: Acute Code(s): Z96.642 - PRESENCE OF LEFT ARTIFICIAL HIP JOINT SNOMED Code(s): 517245721413 Comment: pain control per ortho. flexeril Hx of IT band issues. physical therapy -> plan for home PT (7) Asthma Status: Chronic Code(s): J45.909 - UNSPECIFIED ASTHMA, UNCOMPLICATED SNOMED Code(s): 252376365 Comment: - Continue dulera, singular and Albuterol PRN (8) UTI (urinary tract infection) Status: Acute Comment: klebsiella pna 25-50k with some suprapubic pain. hx of a cefaclor and bactrim allergy. Will cipro 500mg daily x 3 days, it is sensitive Status and Disposition: medicine consulting. ortho primary. d/c home 06/07 Attending: Eduardo Carrion
--- NOTE | 2017-06-08 01:58 | DS ---
AMENDED REPORT NOW INCLUDES COSIGNER DESIGNATION - ESIGNED BEFORE ADJUSTMENTS DISCHARGE SUMMARY: DATE OF ADMISSION: 06/04/17 DATE OF DISCHARGE: 06/07/17 SURGEON: Carmelina Bishop MD * (DICTATED BY SHILO KHAN) RUNNER ON: SHILO Gao PRE-OP DIAGNOSIS: Severe end-stage degenerative osteoarthritis of the left hip. POST-OP DIAGNOSIS: Severe end-stage degenerative osteoarthritis of the left hip. OPERATIVE PROCEDURE: 1. Left total hip arthroplasty. 2. Modifier for morbid obesity. CONSULTATIONS: Included: 1. Physical therapy. 2. Occupational therapy. 3. Medicine. HISTORY: Ms. Caceres is a 61-year-old female who had continued complaints of left hip pain secondary to advanced osteoarthritis. She had failed conservative management and has elected to proceed with a left total hip arthroplasty on 06/04/17. HOSPITAL COURSE: Ms. Caceres was admitted to [facility] on . She underwent a left total hip arthroplasty. Postoperatively, she recovered in the short-stay surgical unit. Postop day 1, she was advanced to regular diet without difficulty. Her pain was controlled with Percocet. She was restarted on home medications. Labs during her sy: hemoglobin and hematocrit were low at 6.9 and 21 on 06/05/17. At this time, she was given 2 units of packed red blood cells. The following day, 06/06/17, her hemoglobin came up to 8.2 and her hematocrit 24 and on 06/07/17, values were 7.6 and 23. She was co-managed for a urinary tract infection with Klebsiella pneumonia by the hospitalist service who started her on ciprofloxacin 500 mg p.o. daily. Her vitals remained stable throughout her stay. She had a T-max of 99.8. She was placed on weightbearing restriction of 50% weightbearing and has been able to bear weight to that extent. She has advanced appropriately with physical therapy and occupational therapy. Her DVT prophylaxis was managed with Lovenox and Coumadin until reaching therapeutic INR. By postop day 3, she was orthopedically and medically stable for discharge to home with services. She will have a repeat CBC on 06/10/17, along with her INR draw by visiting nurse services. PHYSICAL EXAMINATION: General: The patient is noted to be calm and cooperative , in no acute distress. Vital Signs: On day of discharge, 99.8 degrees Fahrenheit temperature, pulse 77, respiratory rate 18, oxygen saturation 98%, blood pressure 110/53. Examination of the left lower extremity; dressing was clean, dry, and intact. Dressing was changed today. The incision on the posterior aspect of her hip is healing well without drainage. There is no erythema of wound edges. No clinical sign of infection. Sensation is intact distally. Dorsalis pedis and posterior tibial pulses are 2+. Dorsiflexion and plantar flexion are intact. Negative Homans sign. LABORATORY DATA: On the day of discharge, hemoglobin 7.6, hematocrit 23. INR 1.85. DISCHARGE MEDICATIONS: 1. Ativan 0.5 mg 1 tab p.o. t.i.d. 2. Atorvastatin 10 mg p.o. daily. 3. Sertraline 150 mg p.o. daily. 4. Singulair 10 mg q.p.m. 5. Ferrous sulfate 160 mg cap, 2 caps p.o. daily. 6. Vitamin D 1000 units, take 5000 mg daily. 7. Advair Diskus 500/50 one puff b.i.d. 8. Flonase 1 spray to 2 sprays per nostril daily. 9. Maggi 180 one tab daily p.r.n. 10. Aspirin 81 mg 1 tab p.o. daily. 11. Ventolin inhaler 2 puffs q.4 hours p.r.n. 12. Januvia 100 mg p.o. daily. 13. Magnesium oxide 400 mg tablet, 1 to 4 tabs p.o. daily. 14. Clobetasol propionate 0.05% cream 1 application topically daily p.r.n. 15. Meclizine 25 mg 1 tab p.o. t.i.d. p.r.n. 16. Percocet 5/325 one tab p.o. q.4 hours p.r.n. 17. Oxycodone 5 mg tab q.4 hours p.r.n. to alternate with oxycodone/ acetaminophen as needed. 18. Docusate 100 mg b.i.d. p.r.n. 19. Cipro 500 mg tablet p.o. daily. 20. Lasix 20 mg p.o. p.r.n. 21. Vitamin B12, 500 mcg tab, 4 tablets p.o. daily. 22. Coumadin 2 mg on 06/07/17, 4 mg on 06/08/17, 2 mg on 06/09/17. CONDITION ON DISCHARGE: Stable. DISCHARGE INSTRUCTIONS: Ms. Caceres is a 61-year-old female postop day 3 status post left total hip arthroplasty, which was uncomplicated. She is orthopedically and medically stable for discharge to home with services. Labs and vital signs are stable. She will restart home medications. She will take 2 mg of Coumadin today, 06/07/17; 4 mg of Coumadin tomorrow, 06/08/17; 2 mg of Coumadin on 06/09/17 and she will have her INR rechecked on 06/10/17, as well as every Saturday and by visiting nurse services, until discontinued. She will remain 50% weightbearing on her left lower extremity. She will have home PT twice a week. She will take Percocet for pain control and may alternate in oxycodone to achieve one dose every 4 hours, not to be taken together. She will take Colace up to 3 times a day for constipation. She will follow up with Dr. Bishop in 10 to 14 days for incision check. She was instructed to go immediately to the ER should she develop any chest pain or shortness of breath. Should she develop fever, increasing pain, or increased redness, she is to call the office immediately. She will have a CBC drawn on 06/10/17 along with her INR. SHILO KHAN [id number]/[facility] #: [id number] [facility] HOSPITALJoya
== END 2017-06-07 13:48 | disposition home health service (06) | DRG 301 ==
LOC: AA 05:56 → SSU 14:15
PROVIDERS: ADMIT Orthopaedic Surgery Adult Reconstructive Orthopaedic Surgery; ATTEND Orthopaedic Surgery Adult Reconstructive Orthopaedic Surgery
PROC: 0SRB04A Replacement of Left Hip Joint with Ceramic on Polyethylene Synthetic Substitute, Uncemented, Open Approach (ICD-10-PCS; 2017-06-04)
PROC: 30233N1 Transfusion of Nonautologous Red Blood Cells into Peripheral Vein, Percutaneous Approach (ICD-10-PCS; principal; 2017-06-05)
DX: M16.12 Unilateral primary osteoarthritis, left hip (principal); E66.01 Morbid (severe) obesity due to excess calories; Z68.41 Body mass index [BMI] 40.0-44.9, adult; K90.9 Intestinal malabsorption, unspecified; Z96.641 Presence of right artificial hip joint; D62 Acute posthemorrhagic anemia; N39.0 Urinary tract infection, site not specified; E11.9 Type 2 diabetes mellitus without complications; F32.9 Major depressive disorder, single episode, unspecified; L40.9 Psoriasis, unspecified; J45.909 Unspecified asthma, uncomplicated; F41.9 Anxiety disorder, unspecified; G47.33 Obstructive sleep apnea (adult) (pediatric); D53.9 Nutritional anemia, unspecified; B96.1 Klebsiella pneumoniae [K. pneumoniae] as the cause of diseases classified elsewhere; R42 Dizziness and giddiness; Z90.49 Acquired absence of other specified parts of digestive tract; Z88.8 Allergy status to other drugs, medicaments and biological substances; Z88.1 Allergy status to other antibiotic agents; Z80.3 Family history of malignant neoplasm of breast; Z79.82 Long term (current) use of aspirin
CPT/HCPCS: 36415; 62323; 80048; 81003; 81015; 85014; 85018; 85610; 86850; 86900; 86901; 86922; 87077; 87086; 87186; 94640; A9270-GY; C1713; C1776; J0690; J1170; J1650; J2250; J2270; J2704; J3010; P9040

== ENCOUNTER 2017-08-30 15:47 | Emergency (ER) | payer BC ==
[2017-08-30 15:58] VITALS: BP 150/80
--- NOTE | 2017-08-30 16:44 | UC ---
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 Baltazar told he she was not wheezing and advised her to go to ED for evaluation--pat noticed inroute to hospital chest pressure mostly resolved and she came her instread - History of Current Complaint Chief Complaint: UCAsthma Stated Complaint: SOB,COUGH Time Seen by Provider: 08/30/17 16:16 Hx Obtained From: Patient Onset/Duration: Sudden Onset, Lasting Hours Timing: Constant Initial Severity: Moderate Current Severity: Mild Chest Pain Location: Mid Sternal Character: Tightness, Burning Aggravating Factor(s): Nothing Alleviating Factor(s): Nothing Associated Signs & Symptoms: Positive: SOB - Allergy/Home Medications Allergies/Adverse Reactions: Allergies Allergy/AdvReac Type Severity Reaction Status Date / Time Cefaclor [From [facility]] Allergy Rash Verified 08/30/17 15:58 Formaldehyde Allergy Rash Verified 08/30/17 15:58 Sulfamethoxazole Allergy Rash Verified 08/30/17 15:58 w/Trimethoprim [From [facility]] Home Medications: Home Medications Fluticasone-Salmeterol 500-50* [Advair Diskus 500-50*] 1 puff PO BID 08/30/17 [ History Confirmed 08/30/17] PMH/Surg Hx/FS Hx/Imm Hx Previously Healthy: No Endocrine History: Diabetes, Dyslipidemia Cardiovascular History: Hypertension Respiratory History: Asthma Psychological History: Depression - Surgical History Surgical History: Yes Surgery Procedure, Year, and Place: 1990 APPY, right total hip replacement 2017 - Family History Known Family History: Negative: Diabetes - Social History Occupation: Employed Full-time Lives: With Family Alcohol Use: None Substance Use Type: None, Prescribed Smoking Status (MU): Former Smoker Amount Used/How Often: 1/2 PPD X 4-5 YEARS Length of Time of Smoking/Using Tobacco: quit 1991 Have You Smoked in the Last Year: No When Did the Patient Quit Smoking/Using Tobacco: 1991 - Immunization History Most Recent Influenza Vaccination: 2016 Most Recent Tetanus Shot: UP TO DATE Most Recent Pneumonia Vaccination: HAS HAD Review of Systems Constitutional: Negative Skin: Negative Eyes: Negative ENT: Negative Respiratory: Shortness Of Breath Cardiovascular: Chest Pain Gastrointestinal: Negative Genitourinary: Negative Motor: Negative Neurovascular: Negative Musculoskeletal: Negative Neurological: Negative Psychological: Negative Is Patient Immunocompromised?: No All Other Systems Reviewed And Are Negative: Yes Physical Exam Triage Information Reviewed: Yes Appearance: No Pain Distress, Ill-Appearing - mild, Obese Vital Signs: Initial Vital Signs Temp 99.5 F 08/30/17 15:52 Pulse 90 08/30/17 15:52 Resp 24 08/30/17 15:52 BP 150/80 08/30/17 15:52 Pulse Ox 98 08/30/17 15:52 Vital Signs Reviewed: Yes Eye Exam: Normal Eyes: Positive: Conjunctiva Clear ENT Exam: Normal ENT: Positive: Normal ENT inspection, Hearing grossly normal, Pharynx normal, TMs normal, Uvula midline. Negative: Nasal congestion, Nasal drainage, Tonsillar swelling, Tonsillar exudate, Trismus, Muffled voice, Hoarse voice, Sinus tenderness Dental Exam: Normal Neck exam: Normal Neck: Positive: 1 Respiratory Exam: Normal Respiratory: Positive: Chest non-tender, Lungs clear, Normal breath sounds, No respiratory distress, No accessory muscle use Cardiovascular Exam: Normal Cardiovascular: Positive: RRR, No Murmur, Pulses Normal, Brisk Capillary Refill Musculoskeletal Exam: Normal Musculoskeletal: Positive: Strength Intact, ROM Intact, No Edema Neurological Exam: Normal Neurological: Positive: Alert, Muscle Tone Normal Psychological Exam: Normal Skin Exam: Normal Diagnostics - EKG Cardiac Rate: NL Cardiac Rhythm: AFib: Normal Ectopy: None ST Segment: Normal - Assessment/Plan Course Of Treatment: has taken asprin today will sign out AMA and go to hospital for further evaluation - Clinical Impression Provider Diagnoses: Chest pressure / SOB - Physician Notifications Discussed Patient Care With: Sandra Rubio Time Discussed With Above Provider: 16:30 Instructed by Provider To: Transfer Discharge - Discharge Plan Condition: Stable Disposition: AGAINST MEDICAL ADVICE Referrals: No Primary Care Phys,NOPCP [Primary Care Provider] -
== END 2017-08-30 16:35 | disposition left against medical advice (07) ==
LOC: UCEAST 15:47
DX: R06.02 Shortness of breath (principal); R07.89 Other chest pain; R05 Cough; I10 Essential (primary) hypertension; E11.9 Type 2 diabetes mellitus without complications; E66.9 Obesity, unspecified; Z88.1 Allergy status to other antibiotic agents; Z88.8 Allergy status to other drugs, medicaments and biological substances; Z88.2 Allergy status to sulfonamides; Z87.891 Personal history of nicotine dependence
CPT/HCPCS: 93005; 99212; G0463

== ENCOUNTER 2017-08-30 16:59 | Emergency (ER) | payer BC ==
[2017-08-30] MEDS ORDERED: Albuterol/Ipratropium NEB.SOL* Albuterol 2.5 MG/Ipratropium 0.5 MG 3 ML INH ONE (17:32)
--- NOTE | 2017-08-30 18:22 | RAD ---
INDICATION: Shortness of breath COMPARISON: Chest x-ray dated May 27, 2017 TECHNIQUE: PA and lateral views of the chest were obtained. FINDINGS: The heart and mediastinum are normal in size and contour. The lungs are grossly clear. There is no evidence of large pleural effusion. Visualized bones are normal for the patient's age. There is no radiographic evidence of free air beneath the diaphragm IMPRESSION: No radiographic evidence of acute cardiopulmonary disease.
[2017-08-30 18:32] LABS: ABS Basophils 0 10^3/ul (0-0.2); ABS Eosinophils 0.1 10^3/ul (0-0.6); ABS Lymphocytes 4.2 10^3/ul (1.0-4.8); ABS Monocytes 0.9 10^3/ul (0-0.8); ABS Neutrophils 9.4 10^3/ul (1.5-7.7); ABS Nucleated RBC 0 10^3/ul; Eosinophil % 0.3 % (0-6); Hematocrit 33 % (35-47); Hemoglobin 10.9 g/dl (12.0-16.0); Lymphocyte % 28.8 % (25-47); Mean Corpuscular HGB Conc 33 g/dl (31-36); Mean Corpuscular Hemoglobin 27 pg (27-31); Mean Corpuscular Volume 82 fL (80-97); Mean Platelet Volume 7 um3 (7.4-10.4); Nucleated Red Blood Cells % 0; Platelet Count 308 10^3/ul (150-450); Red Blood Count 4.04 10^6/ul (4.0-5.4); Red Cell Distribution Width 16 % (10.5-15); White Blood Count 14.7 10^3/ul (3.5-10.8)
[2017-08-30 18:39] LABS: Urine Appearance Clear; Urine Blood Negative (Negative); Urine Color Straw; Urine Ketones Negative (Negative); Urine Protein Negative (Negative); Urine Specific Gravity 1.011 (1.010-1.030); Urine Urobilinogen Negative (Negative)
[2017-08-30 18:50] LABS: INR 0.86 (0.77-1.02)
[2017-08-30] MEDS ORDERED: Iodixanol* (CONTRAST) 320 MG/ML 100 ML SDV IV ONE (19:08)
--- NOTE | 2017-08-30 19:59 | RAD ---
INDICATION: Chest pain and shortness of breath COMPARISON: None TECHNIQUE: Axial source images were acquired following the administration of 91 mL Visipaque [address] angiographic technique. Coronal and sagittal reconstructed images were constructed and reviewed. FINDINGS: There there are no filling defects in the pulmonary arteries to indicate acute pulmonary embolic disease. There are no focal infiltrates or effusions. There are no pulmonary parenchymal masses. The heart is normal in size. There is no evidence of pericardial effusion. There is no evidence of aortic aneurysm or dissection. There is a top normal right hilar lymph node measuring 11 mm in short axis diameter. Scattered mediastinal lymph nodes are seen measuring up to 8 mm in short axis diameter. Degenerative changes of the thoracic spine includes loss of intervertebral disc height and multilevel vacuum disc phenomenon and anterior marginal osteophyte formation. Left lobe of the liver there is a subcapsular fluid density 1.6 cm cyst. IMPRESSION: 1. No CT of evidence of pulmonary embolism. 2. Top normal right hilar and mediastinal lymph nodes of uncertain clinical significance.
[2017-08-30] MEDS ORDERED: Azithromycin TAB* 250 MG PO ONE (21:13)
--- NOTE | 2017-08-30 21:24 | ED ---
Ponce Sutton Thomas, scribed for Rodrigo Paulino on 08/30/17 at 1727 . HPI Chest Pain - HPI Summary HPI Summary: The patient is a 62 year old female with a history of asthma referred to the emergency department by her PMD complaining of episodes of shortness of breath and chest tightness that began a few days ago. Her symptoms are resolved in the ED. The patient saw her PMD and was prescribed prednisone, which she has been taking. She did not yet take the prednisone today. She used her inhaler twice earlier today. The patient additionally complains of a productive cough. The patient denies myalgia and leg swelling. - History of Current Complaint Chief Complaint: EDChestPainROMI Time Seen by Provider: 08/30/17 17:22 Hx Obtained From: Patient Onset/Duration: Started Hours Ago - a few, Still Present Timing: Intermittent - episodes Current Severity: Moderate Aggravating Factor(s): Nothing Alleviating Factor(s): Other: - Prednisone Associated Signs and Symptoms: Positive: Chest Pain, Other: - SOB, cough; NEGATIVE: leg swelling, myalgia Related History: Obesity - Additional Pertinent History Primary Care Physician: [id number] - Allergy/Home Medications Allergies/Adverse Reactions: Allergies Allergy/AdvReac Type Severity Reaction Status Date / Time Cefaclor [From [facility]] Allergy Rash Verified 08/30/17 15:58 Formaldehyde Allergy Rash Verified 08/30/17 15:58 Sulfamethoxazole Allergy Rash Verified 08/30/17 15:58 w/Trimethoprim [From [facility]] PMH/Surg Hx/FS Hx/Imm Hx Previously Healthy: No Endocrine/Hematology History: Reports: Hx Diabetes, Hx Anemia - ON IRON FOR Denies: Hx Thyroid Disease Cardiovascular History: Denies: Hx Hypertension, Other Cardiovascular Problems/Disorders Respiratory History: Reports: Hx Asthma, Hx Sleep Apnea Denies: Other Respiratory Problems/Disorders GI History: Reports: Hx Hiatal Hernia - SMALL- STATES HAS NO PROBLEMS WITH Denies: Hx Ulcer History: Reports: Hx Kidney Infection - past, Hx Kidney Stones - x1, passed Musculoskeletal History: Reports: Hx Arthritis - RIGHT HIP, SACRAL ILEAC JOINT- LOWER THORACIC SPINE, Hx Bursitis - neetu shoulderd Denies: Hx Rheumatoid Arthritis, Hx Osteoporosis Sensory History: Reports: Hx Contacts or Glasses - CONTACTS Denies: Hx Hearing Aid Opthamlomology History: Reports: Hx Contacts or Glasses - CONTACTS Neurological History: Denies: Other Neuro Impairments/Disorders Psychiatric History: Reports: Hx Anxiety - ON MEDICATION FOR, Hx Depression - ON MEDICATION FOR - Cancer History Hx Chemotherapy: No Hx Radiation Therapy: No - Surgical History Surgery Procedure, Year, and Place: 1989 APPY, right total hip replacement 2017 Hx Anesthesia Reactions: No Infectious Disease History: No Infectious Disease History: Reports: Hx Shingles - 2014 Denies: Hx Clostridium Difficile, Hx Hepatitis, Hx Human Immunodeficiency Virus (HIV), Hx of Known/Suspected MRSA, Hx Tuberculosis, Hx Known/Suspected VRE , Hx Known/Suspected VRSA, History Other Infectious Disease, Traveled Outside the [place] in Last 30 Days - Family History Known Family History: Negative: Diabetes - Social History Alcohol Use: None Substance Use Type: Reports: None, Prescribed Hx Tobacco Use: No Smoking Status (MU): Former Smoker Amount Used/How Often: 1/2 PPD X 4-5 YEARS Length of Time of Smoking/Using Tobacco: quit 1991 Have You Smoked in the Last Year: No Review of Systems Negative: Fever Positive: Chest Pain Positive: Shortness Of Breath, Cough - productive Negative: Myalgia, Edema All Other Systems Reviewed And Are Negative: Yes Physical Exam - Summary Physical Exam Summary: Appearance: Well appearing, no pain distress Skin: warm, dry, reflects adequate perfusion Head/face: normal Eyes: EOMI, XAVIER ENT: normal Neck: supple, non-tender Respiratory: CTA, breath sounds present Cardiovascular: RRR, pulses symmetrical Abdomen: non-tender, soft Bowel: present Musculoskeletal: normal, strength/ROM intact Neuro: normal, sensory motor intact, A&Ox3 Triage Information Reviewed: Yes Vital Signs On Initial Exam: Initial Vitals Temp Pulse Resp BP Pulse Ox 98.3 F 80 16 183/81 96 08/30/17 17:01 08/30/17 17:01 08/30/17 17:01 08/30/17 17:01 08/30/17 17:01 Vital Signs Reviewed: Yes Diagnostics - Vital Signs Vital Signs Temp Pulse Resp BP Pulse Ox 08/30/17 17:01 98.3 F 80 16 183/81 96 - Laboratory Lab Results: Lab Results 08/30/17 08/30/17 08/30/17 Range/Units 18:10 18:10 18:10 WBC 14.7 H (3.5-10.8) 10^3/ul RBC 4.04 (4.0-5.4) 10^6/ul Hgb 10.9 L (12.0-16.0) g/dl Hct 33 L (35-47) % MCV 82 (80-97) fL MCH 27 (27-31) pg MCHC 33 (31-36) g/dl RDW 16 H (10.5-15) % Plt Count 308 (150-450) 10^3/ul MPV 7 L (7.4-10.4) um3 Neut % (Auto) 64.2 (38-83) % Lymph % (Auto) 28.8 (25-47) % Mcminn % (Auto) 6.4 (1-9) % Eos % (Auto) 0.3 (0-6) % Baso % (Auto) 0.3 (0-2) % Absolute Neuts (auto) 9.4 H (1.5-7.7) 10^3/ul Absolute Lymphs (auto) 4.2 (1.0-4.8) 10^3/ul Absolute Monos (auto) 0.9 H (0-0.8) 10^3/ul Absolute Eos (auto) 0.1 (0-0.6) 10^3/ul Absolute Basos (auto) 0 (0-0.2) 10^3/ul Absolute Nucleated RBC 0 10^3/ul Nucleated RBC % 0 INR (Anticoag Therapy) 0.86 (0.77-1.02) APTT 29.0 (26.0-36.3) seconds D-Dimer, Quantitative 402 H (Less Than 230) ng/mL Sodium (133-145) mmol/L Potassium (3.5-5.0) mmol/L Chloride (101-111) mmol/L Carbon Dioxide (22-32) mmol/L Anion Gap (2-11) mmol/L BUN (6-24) mg/dL Creatinine (0.51-0.95) mg/dL Est GFR ( Amer) (>60) Est GFR (Non-Af Amer) (>60) BUN/Creatinine Ratio (8-20) Glucose (70-100) mg/dL Calcium (8.6-10.3) mg/dL Total Bilirubin (0.2-1.0) mg/dL AST (13-39) U/L ALT (7-52) U/L Alkaline Phosphatase (34-104) U/L Troponin I (<0.04) ng/mL B-Natriuretic Peptide 97 ( - 100) pg/mL Total Protein (6.4-8.9) g/dL Albumin (3.2-5.2) g/dL Globulin (2-4) g/dL Albumin/Globulin Ratio (1-3) Urine Color Urine Appearance Urine pH (5-9) Ur Specific [place] (1.010-1.030) Urine Protein (Negative) Urine Ketones (Negative) Urine Blood (Negative) Urine Nitrate (Negative) Urine Bilirubin (Negative) Urine Urobilinogen (Negative) Ur Leukocyte Esterase (Negative) Urine Glucose (Negative) Influenza A (Rapid) (Negative) Influenza B (Rapid) (Negative) 08/30/17 08/30/17 08/30/17 Range/Units 18:10 18:23 18:25 WBC (3.5-10.8) 10^3/ul RBC (4.0-5.4) 10^6/ul Hgb (12.0-16.0) g/dl Hct (35-47) % MCV (80-97) fL MCH (27-31) pg MCHC (31-36) g/dl RDW (10.5-15) % Plt Count (150-450) 10^3/ul MPV (7.4-10.4) um3 Neut % (Auto) (38-83) % Lymph % (Auto) (25-47) % Mcminn % (Auto) (1-9) % Eos % (Auto) (0-6) % Baso % (Auto) (0-2) % Absolute Neuts (auto) (1.5-7.7) 10^3/ul Absolute Lymphs (auto) (1.0-4.8) 10^3/ul Absolute Monos (auto) (0-0.8) 10^3/ul Absolute Eos (auto) (0-0.6) 10^3/ul Absolute Basos (auto) (0-0.2) 10^3/ul Absolute Nucleated RBC 10^3/ul Nucleated RBC % INR (Anticoag Therapy) (0.77-1.02) APTT (26.0-36.3) seconds D-Dimer, Quantitative (Less Than 230) ng/mL Sodium 135 (133-145) mmol/L Potassium 3.8 (3.5-5.0) mmol/L Chloride 103 (101-111) mmol/L Carbon Dioxide 24 (22-32) mmol/L Anion Gap 8 (2-11) mmol/L BUN 20 (6-24) mg/dL Creatinine 0.65 (0.51-0.95) mg/dL Est GFR ( Amer) 119.6 (>60) Est GFR (Non-Af Amer) 93.0 (>60) BUN/Creatinine Ratio 30.8 H (8-20) Glucose 112 H (70-100) mg/dL Calcium 9.7 (8.6-10.3) mg/dL Total Bilirubin 0.30 (0.2-1.0) mg/dL AST 11 L (13-39) U/L ALT 15 (7-52) U/L Alkaline Phosphatase 93 (34-104) U/L Troponin I 0.01 (<0.04) ng/mL B-Natriuretic Peptide ( - 100) pg/mL Total Protein 7.4 (6.4-8.9) g/dL Albumin 4.1 (3.2-5.2) g/dL Globulin 3.3 (2-4) g/dL Albumin/Globulin Ratio 1.2 (1-3) Urine Color Straw Urine Appearance Clear Urine pH 5.0 (5-9) Ur Specific [place] 1.011 (1.010-1.030) Urine Protein Negative (Negative) Urine Ketones Negative (Negative) Urine Blood Negative (Negative) Urine Nitrate Negative (Negative) Urine Bilirubin Negative (Negative) Urine Urobilinogen Negative (Negative) Ur Leukocyte Esterase Negative (Negative) Urine Glucose Negative (Negative) Influenza A (Rapid) Negative (Negative) Influenza B (Rapid) Negative (Negative) 08/30/17 Range/Units 20:40 WBC (3.5-10.8) 10^3/ul RBC (4.0-5.4) 10^6/ul Hgb (12.0-16.0) g/dl Hct (35-47) % MCV (80-97) fL MCH (27-31) pg MCHC (31-36) g/dl RDW (10.5-15) % Plt Count (150-450) 10^3/ul MPV (7.4-10.4) um3 Neut % (Auto) (38-83) % Lymph % (Auto) (25-47) % Mcminn % (Auto) (1-9) % Eos % (Auto) (0-6) % Baso % (Auto) (0-2) % Absolute Neuts (auto) (1.5-7.7) 10^3/ul Absolute Lymphs (auto) (1.0-4.8) 10^3/ul Absolute Monos (auto) (0-0.8) 10^3/ul Absolute Eos (auto) (0-0.6) 10^3/ul Absolute Basos (auto) (0-0.2) 10^3/ul Absolute Nucleated RBC 10^3/ul Nucleated RBC % INR (Anticoag Therapy) (0.77-1.02) APTT (26.0-36.3) seconds D-Dimer, Quantitative (Less Than 230) ng/mL Sodium (133-145) mmol/L Potassium (3.5-5.0) mmol/L Chloride (101-111) mmol/L Carbon Dioxide (22-32) mmol/L Anion Gap (2-11) mmol/L BUN (6-24) mg/dL Creatinine (0.51-0.95) mg/dL Est GFR ( Amer) (>60) Est GFR (Non-Af Amer) (>60) BUN/Creatinine Ratio (8-20) Glucose (70-100) mg/dL Calcium (8.6-10.3) mg/dL Total Bilirubin (0.2-1.0) mg/dL AST (13-39) U/L ALT (7-52) U/L Alkaline Phosphatase (34-104) U/L Troponin I 0.00 (<0.04) ng/mL B-Natriuretic Peptide ( - 100) pg/mL Total Protein (6.4-8.9) g/dL Albumin (3.2-5.2) g/dL Globulin (2-4) g/dL Albumin/Globulin Ratio (1-3) Urine Color Urine Appearance Urine pH (5-9) Ur Specific [place] (1.010-1.030) Urine Protein (Negative) Urine Ketones (Negative) Urine Blood (Negative) Urine Nitrate (Negative) Urine Bilirubin (Negative) Urine Urobilinogen (Negative) Ur Leukocyte Esterase (Negative) Urine Glucose (Negative) Influenza A (Rapid) (Negative) Influenza B (Rapid) (Negative) Result Diagrams: 08/30/17 18:10 08/30/17 18:10 Lab Statement: Any lab studies that have been ordered have been reviewed, and results considered in the medical decision making process. - Radiology CXR Xray Interpretation: No Acute Changes - No radiographic evidence of acute cardiopulmonary disease. Dr. Paulnio has reviewed this report. Radiology Interpretation Completed By: Radiologist - CT CTA Chest CT Interpretation: No Acute Changes - 1. No CT of evidence of pulmonary embolism. 2. Top normal right hilar and mediastinal lymph nodes of uncertain clinical significance. Dr. Paulino has reviewed this report. CT Interpretation Completed By: Radiologist - EKG 17:12 Cardiac Rate: NL EKG Rhythm: Sinus Rhythm - 71 BPM Chest Pain Course/Dx - Course Assessment/Plan: The patient is a 62 year old female with a history of asthma referred to the emergency department by her PMD complaining of episodes of shortness of breath and chest tightness that began a few days ago. In the ED course the patient was given Duo-Neb and Azithromycin. Bloodwork and urinalysis were obtained. EKG, CXR, and CTA Chest were obtained. The patient is diagnosed with bronchitis and asthma exacerbation. The patient is instructed to follow up with primary care. - Chest Pain Differential Diagnosis/HQI/PQRI: Acute MN, ACS, CHF, Lower Respiratory Infection , Pulmonary Embolism - Diagnoses Provider Diagnoses: Asthma exacerbation, Bronchitis Discharge - Discharge Plan Condition: Stable Disposition: HOME Prescriptions: Azithromycin TAB* [Zithromax TAB (Z-KIRA) 250 mg #6 tabs] 250 mg PO DAILY #4 tab Patient Education Materials: Asthma (ED), Acute Bronchitis (ED) Referrals: [facility] [Outside] Additional Instructions: Follow up with your primary care physician in three days. You can use the [facility] [place] referral service to find one and make an appointment. Return to the emergency department for any new or worsening symptoms. The documentation as recorded by the Ponce gunderson Thomas accurately reflects the service I personally performed and the decisions made by Lora mckeon Emmanuel.
[2017-08-30 21:34] VITALS: BP 145/61
== END 2017-08-30 21:32 | disposition home or self-care (01) ==
LOC: ED 16:59
DX: J45.901 Unspecified asthma with (acute) exacerbation (principal); J40 Bronchitis, not specified as acute or chronic; R07.9 Chest pain, unspecified; R06.02 Shortness of breath; R05 Cough; Z87.891 Personal history of nicotine dependence
CPT/HCPCS: 36415; 71046; 71275; 80053; 81003; 83880; 84484; 85025; 85379; 85610; 85730; 87502; 93005; 94640; 99283; A9270-GY; Q9967

== ENCOUNTER 2018-02-04 00:29 | Emergency (ER) | payer BC ==
[2018-02-04] MEDS ORDERED: NS 0.9% 1000 ML* 1,000 ML IV ONE (00:54)
[2018-02-04] MEDS ORDERED: Metoclopramide IV* 5 MG/ML 2 ML VIAL IV SLOW PU ONE (00:56)
[2018-02-04] MEDS ORDERED: LORazepam INJ* 2 MG/ML 1 ML VIAL IV PUSH ONE (00:56)
[2018-02-04 01:34] LABS: ABS Basophils 0.1 10^3/ul (0-0.2); ABS Eosinophils 0.2 10^3/ul (0-0.6); ABS Lymphocytes 1.6 10^3/ul (1.0-4.8); ABS Monocytes 0.3 10^3/ul (0-0.8); ABS Neutrophils 9.9 10^3/ul (1.5-7.7); ABS Nucleated RBC 0 10^3/ul; Eosinophil % 1.7 % (0-6); Hematocrit 36 % (35-47); Hemoglobin 11.7 g/dl (12.0-16.0); Lymphocyte % 13.3 % (25-47); Mean Corpuscular HGB Conc 33 g/dl (31-36); Mean Corpuscular Hemoglobin 28 pg (27-31); Mean Corpuscular Volume 86 fL (80-97); Mean Platelet Volume 6.9 um3 (7.4-10.4); Nucleated Red Blood Cells % 0; Platelet Count 258 10^3/ul (150-450); Red Blood Count 4.18 10^6/ul (4.00-5.40); Red Cell Distribution Width 15 % (10.5-15); White Blood Count 12.1 10^3/ul (3.5-10.8)
[2018-02-04 01:42] LABS: INR 0.88 (0.77-1.02)
--- NOTE | 2018-02-04 02:33 | ED ---
Merle Sutton Emily, scribed for Praveen Cruz MD on 02/04/18 at 0057 . Dizziness - HPI Summary HPI Summary: This patient is a 62 year old F BIBA to [facility] accompanied by daughter with a chief complaint of dizziness that began at approximately 1700 yesterday. The patient rates the pain 0/10 in severity. Symptoms aggravated by movement. Symptoms alleviated by nothing. Pt reports nausea. 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 - History Of Current Complaint Chief Complaint: EDDizziness Stated Complaint: DIZZINESS Time Seen by Provider: 02/04/18 00:47 Hx Obtained From: Patient Onset/Duration: Still Present Timing: Constant Severity Initially: Mild Severity Currently: Mild Character: Room Spinning Aggravating Factor(s): Other - Movement Alleviating Factor(s): Nothing - Allergies/Home Medications Allergies/Adverse Reactions: Allergies Allergy/AdvReac Type Severity Reaction Status Date / Time cefaclor [From [facility]] Allergy Rash Verified 02/04/18 00:40 sulfamethoxazole Allergy Rash Verified 02/04/18 00:40 [From [facility]] trimethoprim [From [facility]] Allergy Rash Verified 02/04/18 00:40 PMH/Surg Hx/FS Hx/Imm Hx Previously Healthy: No Endocrine/Hematology History: Reports: Hx Diabetes, Hx Anemia - ON IRON FOR Denies: Hx Thyroid Disease Cardiovascular History: Denies: Hx Hypertension, Hx Pacemaker/ICD, Other Cardiovascular Problems/ Disorders Respiratory History: Reports: Hx Asthma, Hx Sleep Apnea Denies: Other Respiratory Problems/Disorders GI History: Reports: Hx Hiatal Hernia - SMALL- STATES HAS NO PROBLEMS WITH Denies: Hx Ulcer History: Reports: Hx Kidney Infection - past, Hx Kidney Stones - x1, passed Denies: Hx Renal Disease Musculoskeletal History: Reports: Hx Arthritis - RIGHT HIP, SACRAL ILEAC JOINT- LOWER THORACIC SPINE, Hx Bursitis - neetu shoulderd Denies: Hx Rheumatoid Arthritis, Hx Osteoporosis Sensory History: Reports: Hx Contacts or Glasses - CONTACTS Denies: Hx Hearing Aid Opthamlomology History: Reports: Hx Contacts or Glasses - CONTACTS Neurological History: Denies: Other Neuro Impairments/Disorders Psychiatric History: Reports: Hx Anxiety - ON MEDICATION FOR, Hx Depression - ON MEDICATION FOR Denies: Hx Panic Disorder - Cancer History Hx Chemotherapy: No Hx Radiation Therapy: No - Surgical History Surgery Procedure, Year, and Place: 1989 APPY, right total hip replacement 2016. LEFT TOTAL HIP 05/2017 Hx Anesthesia Reactions: No Infectious Disease History: Yes Infectious Disease History: Reports: Hx Shingles - 2014 Denies: Hx Clostridium Difficile, Hx Hepatitis, Hx Human Immunodeficiency Virus (HIV), Hx of Known/Suspected MRSA, Hx Tuberculosis, Hx Known/Suspected VRE , Hx Known/Suspected VRSA, History Other Infectious Disease, Traveled Outside the [place] in Last 30 Days - Family History Known Family History: Positive: Other - Breast CA Negative: Diabetes - Social History Occupation: Employed Full-time Lives: With Family Alcohol Use: None Hx Substance Use: No Substance Use Type: Reports: None Hx Tobacco Use: No Smoking Status (MU): Former Smoker Amount Used/How Often: 1/2 PPD X 4-5 YEARS Length of Time of Smoking/Using Tobacco: quit 1992 Have You Smoked in the Last Year: No Review of Systems Positive: Nausea Neurological: Other - Positive dizziness All Other Systems Reviewed And Are Negative: Yes Physical Exam - Summary Physical Exam Summary: VITAL SIGNS: Reviewed. GENERAL: Patient is a well-developed and nourished female who is lying comfortable in the stretcher. Patient is not in any acute respiratory distress. HEAD AND FACE: No signs of trauma. No ecchymosis, hematomas or skull depressions. No sinus tenderness. EYES: PERRLA, EOMI x 2, No injected conjunctiva, no nystagmus. EARS: Hearing grossly intact. Ear canals and tympanic membranes are within normal limits. MOUTH: Oropharynx within normal limits. NECK: Supple, trachea is midline, no adenopathy, no JVD, no carotid bruit, no c- spine tenderness, neck with full ROM. CHEST: Symmetric, no tenderness at palpation LUNGS: Clear to auscultation bilaterally. No wheezing or crackles. CVS: Regular rate and rhythm, S1 and S2 present, no murmurs or gallops appreciated. ABDOMEN: Soft, non-tender. No signs of distention. No rebound no guarding, and no masses palpated. Bowel sounds are normal. EXTREMITIES: FROM in all major joints, no edema, no cyanosis or clubbing. NEURO: Alert and oriented x 3. No acute neurological deficits. Speech is normal and follows commands. Vertigo induced by head movement SKIN: Dry and warm Triage Information Reviewed: Yes Vital Signs On Initial Exam: Initial Vitals Temp Pulse Resp BP Pulse Ox 97.9 F 68 14 161/84 100 02/04/18 00:36 02/04/18 00:36 02/04/18 00:36 02/04/18 00:36 02/04/18 00:36 Vital Signs Reviewed: Yes Diagnostics - Vital Signs Vital Signs Temp Pulse Resp BP Pulse Ox 02/04/18 00:36 97.9 F 68 14 161/84 100 - Laboratory Result Diagrams: 02/04/18 01:10 02/04/18 01:11 Lab Statement: Any lab studies that have been ordered have been reviewed, and results considered in the medical decision making process. Re-Evaluation - Re-Evaluation First Eval Re-Evaluation Time: 02:20 Change: Improved Comment: Pt was able to ambulate Dizzy Course/Dx - Course Course Of Treatment: This patient is a 62 year old F BIBA to [facility] accompanied by daughter with a chief complaint of dizziness that began at approximately 1700 yesterday. Blood work obtained. In the ED course the patient was given fluids, Ativan, and Reglan. Patient will be discharged with follow up from PCP. The patient is agreeable with this plan. - Diagnoses Provider Diagnoses: Vertigo Discharge - Sign-Out/Discharge Documenting (check all that apply): Discharge/Admit/Transfer - Discharge home - Discharge Plan Condition: Stable Disposition: HOME Patient Education Materials: Vertigo (ED) Referrals: Vidal Baltazar DO [Primary Care Provider] - 3 Days Additional Instructions: RETURN TO THE EMERGENCY DEPARTMENT FOR NEW OR WORSENING SYMPTOMS The documentation as recorded by the Merle gunderson Emily accurately reflects the service I personally performed and the decisions made by , Praveen Cruz MD.
[2018-02-04 02:39] VITALS: BP 158/78
== END 2018-02-04 02:38 | disposition home or self-care (01) ==
LOC: ED 00:29
DX: R42 Dizziness and giddiness (principal); Z87.891 Personal history of nicotine dependence; R11.0 Nausea
CPT/HCPCS: 36415; 80053; 83735; 85025; 85610; 85730; 96374; 96375; 99282; J2060; J2765